=== PATIENT | female | born 1960 | race Caucasian/White ===

== ENCOUNTER 2017-11-19 15:38 | Inpatient (IN) ==
--- NOTE | 2017-11-19 15:44 | Emergency Department Report ---
Neuro HPI - General Stated Complaint: arm & leg heaviness,numbness,throat tight Time Seen by Provider: 11/19/17 15:42 - Related Data Home Medications: Home Medications Medication Instructions Recorded Confirmed Albuterol Sulfate [Ventolin Hfa] 1 puff ORAL INH Q6H PRN #0 12/01/15 Amiodarone HCl 200 mg PO DAILY #0 12/01/15 Insulin Glargine,Hum.rec.anlog 22 unit SQ DAILY #0 12/01/15 [Lantus] Meclizine HCl 25 mg PO TID PRN #0 12/01/15 Metformin HCl 1,000 mg PO BIDWM #0 12/01/15 Metoprolol Succinate 50 mg PO DAILY #0 12/01/15 NIFEdipine [Nifedipine ER] 60 mg PO DAILY #0 12/01/15 Pravastatin Sodium 40 mg PO DAILY #0 12/01/15 Aspirin [Aspirin EC] 81 mg PO DAILY #0 12/04/15 Vitamin B Complex Vit C No.4 1 tab PO DAILY #0 12/04/15 [Super B Complex] Previous Rx's Medication Instructions Recorded Metoprolol Succinate 50 mg PO DAILY #15 tab 07/21/16 NIFEdipine [Nifedipine ER] 1 tab PO DAILY #15 tab 07/21/16 Allergies/Adverse Reactions: Allergies Allergy/AdvReac Type Severity Reaction Status Date / Time No Known Allergies Allergy Unverified 07/20/16 22:04 Disposition Prescriptions: No Action Amiodarone HCl 200 mg PO DAILY #0 NIFEdipine [Nifedipine ER] 60 mg PO DAILY #0 Metformin HCl 1,000 mg PO BIDWM #0 Insulin Glargine,Hum.rec.anlog [Lantus] 22 unit SQ DAILY #0 Albuterol Sulfate [Ventolin Hfa] 1 puff ORAL INH Q6H PRN #0 PRN Reason: SHORTNESS OF AIR Pravastatin Sodium 40 mg PO DAILY #0 Aspirin [Aspirin EC] 81 mg PO DAILY #0 Vitamin B Complex Vit C No.4 [Super B Complex] 1 tab PO DAILY #0 Metoprolol Succinate 50 mg PO DAILY #15 tab Meclizine HCl 25 mg PO TID PRN #0 PRN Reason: DIZZINESS Metoprolol Succinate 50 mg PO DAILY #0 NIFEdipine [Nifedipine ER] 1 tab PO DAILY #15 tab Referrals: Coleman Burk DO [Family Provider] -
[2017-11-19] MEDS: SALINE FLUSH 10ml SYRINGE IVF PRN (15:55)
--- NOTE | 2017-11-19 15:57 | CT Scan Report ---
EXAM: CT head/brain wo con LOCATION OF DICTATION: [place] HISTORY: heaviness and numbness to arms COMPARISON: May 17, 2017 TECHNIQUE: Axial CT images through the head were performed without contrast. Iterative Reconstruction dose reducing technique was utilized. FINDINGS: The ventricles are of normal size, shape, and contour for the patient's age. Moderate deep/subcortical white matter disease unchanged from the previous study. The brainstem, cerebellum, and cerebral hemispheres otherwise have a normal morphology and CT attenuation. There is no evidence of midline displacement. No hemorrhage, signs of acute territorial stroke, mass effect, mass lesions, or edema is evident. The visualized portions of the skull base, midface, and calvarium demonstrate no abnormality. The paranasal sinuses are well aerated and free of significant disease. The tympanic and mastoid cavities appear normal. IMPRESSION: 1. Age-related atrophy and moderate deep/subcortical white matter disease likely secondary to chronic small vessel ischemia and not significantly changed from the previous CT head without evidence for acute intracranial process or hemorrhage. .
[2017-11-19] MEDS ORDERED: INSULIN REGULAR, HUMAN 100 UNIT/ML INJECTION IVP ONE ×2 (16:15→17:04)
[2017-11-19] MEDS ORDERED: NS 1,000 ML IV ONE (16:15)
--- OUTSIDE RECORDS SUMMARY | 2017-11-19 16:44 | External Medical Summary ---
:1960 [facility] Address [address] [place] [address] Care Team Providers Name Role Phone Coleman Burk Unavailable Unavailable PROBLEMS Type Condition ICD9-CM [id number] Onset Condition SNOMED Code Code Code Dates Status Problem Cerebral I63.9 Active 756240721 infarction, unspecified Problem Type 2 diabetes E11.65 Active 566089836114636 mellitus with hyperglycemia Problem Hyperlipidemia, E78.5 Active 59322901 unspecified Problem Hyperlipidemia, E78.5 Active 92808947 unspecified Problem Type 2 diabetes E11.65 Active 224045690208992 mellitus with hyperglycemia Problem Hypothyroidism, E03.9 Active 84263942 unspecified Problem Tension-type G44.209 Active 889303086 headache, unspecified, not intractable Problem Unspecified visual H54.7 Active loss Problem Mixed E78.2 Active 078485218 hyperlipidemia Problem Type 2 diabetes E11.9 Active 698527672 mellitus without complications Problem Coronary 414.00 Active 48402069 atherosclerosis of unspecified type of vessel, 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 coronary artery without angina pectoris Problem Mixed 272.2 Active 506848909 hyperlipidemia Problem Essential (primary) I10 Active 23764016 hypertension Problem Hypertension, 401.1 Active 85162671 benign Problem Low vision, left H54.52 Active 68096210 eye, normal vision right eye ALLERGIES Unknown Allergies SOCIAL HISTORY No smoking Hx information available PLAN OF CARE VITAL SIGNS MEDICATIONS Unknown Medications RESULTS No Results PROCEDURES No Known procedures IMMUNIZATIONS No Known Immunizations
--- OUTSIDE RECORDS SUMMARY | 2017-11-19 16:44 | External Medical Summary ---
:1960 Author Organization [email or web address] Care Team Providers Name Role Phone Coleman Burk Provider Role Unavailable Allergies No Known Allergies Problems Problem Type Condition Code Onset Dates Condition Status Problem Hypertension, benign 401.1 Active Problem Mixed hyperlipidemia 272.2 Active Problem Asthma 493.90 Active Problem Coronary atherosclerosis of 414.00 Active unspecified type of vessel, [place] or graft Problem Type 2 diabetes mellitus without E11.9 Active complications Medications Medication Code Code Instructions Start End Date Status Dosage System Date BD Insulin Syr [facility] 8290-328 31G X 02/13" January 11, as directed Ultrafine II 468 0.5 ML SQ daily 2015 to give DX E11.9 insulin Results No Known Results Summary Purpose [email or web address] Submission
--- OUTSIDE RECORDS SUMMARY | 2017-11-19 16:44 | External Medical Summary ---
:1960 Author Organization [employer] Care Team Providers Name Role Phone Coleman Burk Provider Role Unavailable Allergies No Known Allergies Problems Problem Type Condition Code Onset Dates Condition Status Problem Mixed hyperlipidemia 272.2 Active Problem Asthma 493.90 Active Problem Hypertension, benign 401.1 Active Problem Type 2 diabetes mellitus with E11.65 Active hyperglycemia Problem Hyperlipidemia, unspecified E78.5 Active Problem Tension-type headache, unspecified, G44.209 Active not intractable Problem Essential (primary) hypertension I10 Active Problem 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 [place] coronary artery without angina pectoris Problem Cerebral infarction, unspecified I63.9 Active Problem Low vision, left eye, normal vision H54.52 Active right eye Assessment Low vision, left eye, normal vision H54.52 Active right eye Assessment Type 2 diabetes mellitus with E11.65 Active hyperglycemia Assessment Tension-type headache, unspecified, G44.209 Active not intractable Assessment Cerebral infarction, unspecified I63.9 Active Problem Type 2 diabetes mellitus without E11.9 Active complications Assessment Essential (primary) hypertension I10 Active Problem Coronary atherosclerosis of 414.00 Active unspecified type of vessel, [place] or graft Medications Medication Code Code Instructions Start End Status Dosage System Date Date Lantus [facility] [address]-38 100 UNIT/ML 22 units Subcutaneous Once a day BD Insulin Syr [facility] 8290-813972 31G X 5/16 SQ December as directed Ultrafine II once per day, 2015 to give DX E11.9 insulin Metformin HCl [facility] 13530318088 1000 MG Orally 1 tablet Twice a day with meals Risperidone [facility] [address]-07 0.25 MG Orally 2 tablets Once a day Pravastatin [facility] [address]-15 40 MG Orally 1 tablet Sodium Once a day OneTouch Test [facility] [address]-13 1 In Vitro December as directed Twice every day 2015 to check DX: E11.9 blood sugar Insulin Pen ND 0 32G X 4 MM SQ November as directed Needle once a day, DX 2015 E11.9 NIFEdipine ER [facility] 41689579500 60 MG TAKE 1 CAPSULE BY MOUTH DAILY Meclizine HCl [facility] [address]-35 25 MG Orally 1 tablet as Once a day needed for vertigo Amiodarone HCl [facility] 18721848520 200 MG Orally 1 tablet Once a day Metoprolol [facility] [address]-35 50 MG Orally 1 tablet Succinate ER Once a day Procedures Procedure Coding System Code Date VITAMIN B12 CPT-4 55286 Jul 28, 2016 CREATININE-MICROALB/CREAT RATION URINE CPT-4 37250 Jul 28, 2016 MICROALBUMIN- MICRO ALB/CREAT RATIO CPT-4 55655 Jul 28, 2016 URINALYSIS WITH MICROSCOPIC CPT-4 40525 Jul 28, 2016 COMPLETE CBC W/AUTO DIFF WBC CPT-4 34484 Jul 28, 2016 COMPREHENSIVE METABOLIC PANEL CPT-4 14176 Jul 28, 2016 FOLATE- VIT B12 AND FOLATE CPT-4 52562 Jul 28, 2016 LIPID PANEL CPT-4 33555 Jul 28, 2016 TSH CPT-4 86679 Jul 28, 2016 C-REACTIVE PROTEIN CPT-4 26720 Jul 28, 2016 SED RATE CPT-4 44921 Jul 28, 2016 Results Name Result Date Reference Range Unit Abnormality Flag Comprehensive Metabolic Panel (CMP) ----Alkaline Phosphatase 73 [id number] 40-150 U/L ----Bilirubin Total 0.2 79885443 0.2-1.2 mg/dL ----Creatinine 1.02 20968298 0.57-1.11 mg/dL ----Calcium 9.5 09577473 8.9-10.5 mg/dL ----Sodium 141 25807733 135-144 mEq/L ----Globulin 2.9 58121679 1.8-4.0 g/dL ----Potassium 5.1 11477600 3.5-5.2 mEq/L ----Anion Gap 10 89085004 3-20 ----Chloride 105 26197174 99-111 mEq/L ----AST (SGOT) 25 81984584 5-34 U/L ----CO2 26 45784671 22-31 mEq/L ----Glucose 127 01931353 70-99 mg/dL H ----Albumin 3.5 96820382 3.5-5.0 g/dL ----ALT (SGPT) 16 90751525 0-55 U/L ----BUN 21 44208577 10-20 mg/dL H ----Protein 6.4 58922694 6.1-7.7 g/dL C-Reactive Protein ----C-Reactive Protein <0.5 69171601 <0.5 mg/dL Vitamin B12 and Folate ----Vitamin B12 1261 41313283 213-816 pg/mL H ----Folate 14.0 21144699 7.0-31.4 ng/mL CBC With Platelet and Differential ----MCHC 33.3 34460578 32.0-36.0 g/dL ----MCH 28.7 65864041 27.0-32.0 pg ----MPV 10.4 73164127 8.8-14.8 fL ----RDW 12.8 58324703 11.5-14.5 % ----Eosinophils 6 56002752 0-4 % H ----Basophils 1 66091260 0-2 % ----Immature Granulocytes 0.7 99715243 0.0-1.0 % ----Absolute Neutrophils 4.16 38730888 1.90-7.00 10*3 ----Platelet Count 445 74048634 150-400 K/uL H ----Absolute Eosinophils 0.54 84907859 0.00-0.50 10*3 H ----HCT 37.5 76436629 37.0-47.0 % ----Absolute Basophils 0.07 54002612 0.00-0.20 10*3 ----MCV 86.0 18026334 82.0-99.0 fL ----RBC 4.36 17815253 4.00-5.20 10*6/uL ----Absolute Lymphocytes 3.69 20036035 0.80-3.30 10*3 H ----Absolute Monocytes 1.01 06230822 0.30-1.00 10*3 H ----HGB 12.5 97765465 12.0-16.0 g/dL ----Monocytes 11 27622091 4-11 % ----WBC 9.5 73207039 4.8-10.8 K/uL ----Neutrophils 44 10615240 51-75 % L ----Lymphocytes 39 32064746 20-46 % Urinalysis with Microscopic ----Hyaline Casts 1-3 23473866 0-3 /LPF ----Glucose, Urine Negative 54698152 Negative ----Bacteria Moderate 05455143 * ----Ketones Negative 81239372 Negative ----Epithelial Cells 0-2 73536243 /HPF ----Appearance Clear 07700920 ----WBC, Urine 0-2 01326239 0-4 /HPF ----Color Yellow 16482739 ----Specific [place] 1.007 31793090 1.003-1.030 ----Nitrites Negative 30906546 Negative ----RBC, Urine 0-4 29267049 0-4 /HPF ----Bilirubin Negative 46072449 Negative ----Leukocyte Esterase Negative 98521547 Negative ----Blood Negative 83456809 Negative ----Urobilinogen 0.2 47660270 <1.0 mg/dL ----Protein Pos 2+ 59716857 Negative * ----pH 7.0 97097463 5.0-8.0 TSH ----TSH 6.45 83238768 0.35-4.94 uIU/mL H Micro Albumin/Creatinine Ratio, Urine ----Creatinine mg/dL, 20 57214028 mg/dL Urine ----Albumin mg/dL, Urine 137.5 11247045 0.0-1.7 mg/dL H ----Alb/Creat Ratio, Urine 6875.0 89931787 0.0-29.0 mg/g H Non-HDL Cholesterol ----Non-HDL Cholesterol 185 47097453 0-159 mg/dL H Sedimentation Rate ----Sedimentation Rate 39 44549391 0-23 mm/h H eGFR ----eGFR 56 59683698 >60 mL/min * Lipid Panel ----HDL Cholesterol 71 31187281 40-84 mg/dL ----Triglycerides 165 68951049 0-149 mg/dL H ----VLDL Cholesterol 33 51172256 0-28 mg/dL H ----LDL Cholesterol 152 10415776 0-130 mg/dL H ----Cardiac Risk 3.6 90951076 0.0-5.0 ----Cholesterol 256 31603005 0-199 mg/dL H Summary Purpose [employer] Submission
--- OUTSIDE RECORDS SUMMARY | 2017-11-19 16:45 | External Medical Summary ---
:1960 Author Organization [employer] Care Team Providers Name Role Phone Coleman Burk Provider Role Unavailable Allergies No Known Allergies Problems Problem Type Condition Code Onset Dates Condition Status Problem Diabetes Mellitus Type 2, not stated 250.00 Active as uncontrolled Problem Hypertension, benign 401.1 Active Problem Asthma 493.90 Active Problem Mixed hyperlipidemia 272.2 Active Problem Coronary atherosclerosis of 414.00 Active unspecified type of vessel, [place] or graft Medications No Known Medications Results No Known Results Summary Purpose [employer] Submission
--- OUTSIDE RECORDS SUMMARY | 2017-11-19 16:45 | External Medical Summary ---
:1960 Author Organization [employer] Care Team Providers Name Role Phone Coleman Burk Provider Role Unavailable Allergies No Known Allergies Problems Problem Type Condition Code Onset Dates Condition Status Problem Hypertension, benign 401.1 Active Problem Mixed hyperlipidemia 272.2 Active Problem Asthma 493.90 Active Assessment Dizziness and giddiness R42 Active Problem Coronary atherosclerosis of 414.00 Active unspecified type of vessel, [place] or graft Problem Type 2 diabetes mellitus without E11.9 Active complications Medications Medication Code Code Instructions Start End Date Status D[place] [address]-03 0.25 MG Orally 2 tablets 21-05 [place] [address]-37 25 MG Orally 1 tablet as 43-10 [place] [address]-42 40 MG Orally 1 tablet Sodium 02-10 [place] [address]-31 50 MG Orally 1 tablet Succinate ER 82-01 Once a day Metformin HCl NDC 50605-66 1000 MG Orally 1 tablet 14-01 Twice [place] [address]-75 100 UNIT/ML 22 units 20-33 Subcutaneous Once a day NIFEdipine NDC 01090-29 60 mg Orally 1 capsule 30-10 [place] [address]-43 200 MG Orally 1 tablet 33-06 Once a day Ventolin HFA [facility] 86411-97 108 (90 Base) Sep 02 to 2 82-20 MCG/ACT 2014 puffs as Inhalation every needed for 6 hrs wheezing/[place] [address]-10 81 MG Orally 1 tablet 74-68 Once a day Procedures Procedure Coding System Code Date DUMMY CODE FOR NURSE VISIT CPT-4 DUMMY Sep 03, 2015 Results No Known Results Summary Purpose [employer] Submission
--- OUTSIDE RECORDS SUMMARY | 2017-11-19 16:45 | External Medical Summary ---
:1960 Author Organization [employer] Care Team Providers Name Role Phone Coleman Burk Provider Role Unavailable Allergies, Adverse Reactions, Alerts Substance Reaction Event Type N.K.D.A. Info Not Available Non Drug Allergy Problems Problem Type Condition Code Onset Dates Condition Status Problem Low vision, left eye, normal vision H54.52 Active right eye Problem Hyperlipidemia, unspecified E78.5 Active Problem Cerebral infarction, unspecified I63.9 Active Problem Type 2 diabetes mellitus with E11.65 Active hyperglycemia Assessment Hyperlipidemia, unspecified E78.5 Active Problem Unspecified visual loss H54.7 Active Assessment Type 2 diabetes mellitus with E11.65 Active hyperglycemia Assessment Unspecified visual loss H54.7 Active Problem Hyperlipidemia, unspecified E78.5 Active Problem Tension-type headache, unspecified, G44.209 Active not intractable Problem Type 2 diabetes mellitus with E11.65 Active hyperglycemia Problem Mixed hyperlipidemia E78.2 Active Problem Hypothyroidism, unspecified E03.9 Active Assessment Essential (primary) hypertension I10 Active Problem Type 2 diabetes mellitus without E11.9 Active complications Assessment Other proteinuria R80.8 Active Assessment Raised antibody titer R76.0 Active Problem Hypertension, benign 401.1 Active Problem Asthma 493.90 Active Problem Coronary atherosclerosis of 414.00 Active unspecified type of vessel, [place] or graft Problem 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 [place] coronary artery without angina pectoris Problem Mixed hyperlipidemia 272.2 Active Problem Essential (primary) hypertension I10 Active Medications Medication Code Code Instructions Start End Date Status Dosage System Date Metformin HCl [facility] 81085364385 1000 MG Orally 1 tablet Twice a day with meals Lancets [facility] 8193-499511 1 blood glucose Aug 31, as 3 Times a day 2015 directed Insulin Pen NDC 0 32G X 4 MM SQ November as Needle once a day, DX 2015 directed E11.9 One Touch NDC 0 0 Blood Glucose Aug 31November as Ultra Blue 3 Times a day 2015 directed Test Strips Synthroid [facility] [address]-95 25 MCG Orally Nov 10, 0.5 tablet Once a day 2015 on an empty stomach in the morning Amiodarone HCl [facility] 98212938652 200 MG Orally 1 tablet Once a day NIFEdipine ER [facility] 51151073778 60 MG take 1 capsule by mouth daily Meclizine HCl [facility] [address]-76 25 MG Orally 1 tablet Once a day as needed for vertigo Risperidone [facility] [address]-47 0.25 MG Orally 2 tablets Once a day Lantus [facility] [address]-52 100 UNIT/ML 22 units Subcutaneous Once a day Metoprolol [facility] [address]-35 50 MG Orally 1 tablet Succinate ER Once a day Pravastatin [facility] [address]-65 40 MG Orally 1 tablet Sodium Once a day at bedtime BD Insulin Syr [facility] 8290-513940 31G X 5/16 SQ December as Ultrafine II once per day, 2015 directed DX E11.9 to give insulin OneTouch Test [facility] [address]-67 1 In Vitro 01 January as Times a day 2015 directed to check blood sugar Procedures Procedure Coding System Code Date [facility] visit Established Patient CPT-4 G0467 Aug 31, 2016 OFFICE VISIT, EST-LOW COMPLEXITY (15 MIN.) CPT-4 34425 Aug 31, 2016 HEMOGLOBIN A1C, IN HOUSE CPT-4 60093 Aug 31, 2016 Vital Signs Date/Time: Aug 31, 2016 Temperature 97.8 F Height 61 in Weight 153.8 lbs Blood Pressure Diastolic 90 mm Hg Blood Pressure Systolic 158 mm Hg Cardiac Monitoring Heart Rate 78 /min BMI 29.06 Index Oximetry 97 % Respiratory Rate 16 /min Results Name Result Date Reference Range Unit Abnormality Flag In House HB A1c ----Hemoglobin A1c 7.0 [id number] Summary Purpose [employer] Submission
--- OUTSIDE RECORDS SUMMARY | 2017-11-19 16:45 | External Medical Summary ---
:1960 Author Organization [employer] Care Team Providers Name Role Phone Coleman Burk Provider Role Unavailable Allergies, Adverse Reactions, Alerts Substance Reaction Event Type N.K.D.A. 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 Active right eye Assessment Cardiac arrhythmia, unspecified I49.9 Active Assessment Other asthma J45.998 Active Problem Hypertension, benign 401.1 Active Problem Mixed hyperlipidemia 272.2 Active Problem Asthma 493.90 Active Assessment Other specified diabetes mellitus E13.9 Active without complications Assessment Other abnormalities of gait and R26.89 Active mobility Problem Coronary atherosclerosis of 414.00 Active unspecified type of vessel, [place] or graft Problem Type 2 diabetes mellitus without E11.9 Active complications Medications Medication Code Code Instructions Start End Date Status [place] [address]-78 60 mg Orally 1 capsule 30-10 daily Amiodarone HCl [facility] 42249-61 200 MG Orally 1 tablet 33-06 Once a day Ventolin HFA [facility] 83068-26 108 (90 Base) Sep 02, 1 to 2 82-20 MCG/ACT 2014 puffs as Inhalation every needed for 6 hrs wheezing/[place] [address]-20 40 MG Orally 1 tablet Sodium 02-10 [place] [address]-39 100 UNIT/ML 22 units 20-33 Subcutaneous [place] [address]-17 1000 MG Orally 1 tablet 14-01 Twice [place] [address]-44 25 MG Orally 1 tablet as 43-10 [place] [address]-75 81 MG Orally 1 tablet 74-68 [place] [address]-74 50 MG Orally 1 tablet Succinate ER 82-01 [place] [address]-96 0.25 MG Orally 2 tablets 21-05 Once a day Procedures Procedure Coding System Code Date OFFICE VISIT, EST-MOD. COMPLEXITY (25 MIN) CPT-4 02204 Oct 29, 2015 [facility] visit Established Patient CPT-4 G0467 Oct 29, 2015 Vital Signs Date/Time: Oct 29, 2015 Height 61 in Weight 154.8 lbs Temperature 97.1 F Blood Pressure Diastolic 94 mm Hg Blood Pressure Systolic 134 mm Hg Cardiac Monitoring Heart Rate 69 /min BMI 29.25 Index Oximetry 98 % Respiratory Rate 16 /min Results No Known Results Summary Purpose [employer] Submission
--- OUTSIDE RECORDS SUMMARY | 2017-11-19 16:45 | External Medical Summary ---
:1960 Author Organization [employer] Care Team Providers Name Role Phone Coleman Burk Provider Role Unavailable Allergies No Known Allergies Problems Problem Type Condition Code Onset Dates Condition Status Problem Hypertension, benign 401.1 Active Problem Mixed hyperlipidemia 272.2 Active Problem Diabetes Mellitus Type 2, not stated 250.00 Active as uncontrolled Problem Coronary atherosclerosis of 414.00 Active unspecified type of vessel, [place] or graft Medications Medication Code System Code Instructions Start End Date Status Dosage Date Pravastatin [facility] 450[address]-441 40 MG Orally 1 tablet Sodium 2-10 Once a day Results No Known Results Summary Purpose [employer]Works Submission
--- OUTSIDE RECORDS SUMMARY | 2017-11-19 16:45 | External Medical Summary ---
:1960 Author Organization [employer] Care Team Providers Name Role Phone Coleman Burk Provider Role Unavailable Allergies No Known Allergies Problems Problem Type Condition Code Onset Dates Condition Status Problem Hypertension, benign 401.1 Active Problem Mixed hyperlipidemia 272.2 Active Problem Asthma 493.90 Active Problem Coronary atherosclerosis of 414.00 Active unspecified type of vessel, [place] or graft Problem Type 2 diabetes mellitus without E11.9 Active complications Medications No Known Medications Results No Known Results Summary Purpose [employer] Submission
--- OUTSIDE RECORDS SUMMARY | 2017-11-19 16:45 | External Medical Summary ---
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 [place] coronary artery without angina pectoris Problem Hypothyroidism, unspecified E03.9 Active Problem Tension-type headache, unspecified, G44.209 Active not intractable Problem Mixed hyperlipidemia E78.2 Active Problem Cerebral infarction, unspecified I63.9 Active Problem Low vision, left eye, normal vision H54.52 Active right eye Problem Type 2 diabetes mellitus with E11.65 Active hyperglycemia Problem Hyperlipidemia, unspecified E78.5 Active Assessment Proteinuria, unspecified R80.9 Active Problem Type 2 diabetes mellitus without E11.9 Active complications Problem Coronary atherosclerosis of 414.00 Active unspecified type of vessel, [place] or graft Assessment Hypothyroidism, unspecified E03.9 Active Problem Mixed hyperlipidemia 272.2 Active Assessment Mixed hyperlipidemia E78.2 Active Problem Hypertension, benign 401.1 Active Medications Medication Code Code Instructions Start End Status Dosage System Date Date Metformin HCl [facility] 81510607743 1000 MG Orally 1 tablet Twice a day with meals NIFEdipine ER [facility] 61753905438 60 MG TAKE 1 CAPSULE BY MOUTH DAILY Insulin Pen [facility] 0 32G X 4 MM SQ November as directed Needle once a day, DX 2015 E11.9 Pravastatin [facility] [address]-19 80 MG Orally 1 tablet Sodium Once a day at bedtime Lantus [facility] [address]-65 100 UNIT/ML 22 units Subcutaneous Once a day OneTouch Test [facility] [address]-91 1 In Vitro December as directed Twice every day 2015 to check DX: E11.9 blood sugar Meclizine HCl [facility] [address]-70 25 MG Orally 1 tablet as Once a day needed for vertigo Amiodarone HCl [facility] 76709087204 200 MG Orally 1 tablet Once a day Synthroid [facility] [address]-53 25 MCG Orally Aug 10, 0.5 tablet Once a day 2015 on an empty stomach in the morning Risperidone [facility] [address]-43 0.25 MG Orally 2 tablets Once a day Metoprolol [facility] [address]-89 50 MG Orally 1 tablet Succinate ER Once a day BD Insulin Syr [facility] 8290-824739 31G X 5/16 SQ December as directed Ultrafine II once per day, 2015 to give DX E11.9 insulin Procedures Procedure Coding System Code Date IMMUNOELECTROPHORESIS, URINE CPT-4 03262 Aug 16, 2016 Results No Known Results Summary Purpose eClinicalWorks Submission
--- OUTSIDE RECORDS SUMMARY | 2017-11-19 16:45 | External Medical Summary ---
:1960 Author Organization eClinicalWorks Care Team Providers Name Role Phone Coleman Burk Provider Role Unavailable Allergies, Adverse Reactions, Alerts Substance Reaction Event Type N.K.D.A. Info Not Available Non Drug Allergy Problems Problem Type Condition Code Onset Dates Condition Status Assessment Hyperlipidemia, unspecified E78.5 Active Assessment Benign paroxysmal vertigo, H81.10 Active unspecified ear Assessment Essential (primary) hypertension I10 Active Assessment 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 [place] coronary artery without angina pectoris Problem 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 [place] coronary artery without angina pectoris Problem Asthma 493.90 Active Problem Essential (primary) hypertension I10 Active Problem Coronary atherosclerosis of 414.00 Active unspecified type of vessel, [place] or graft Problem Type 2 diabetes mellitus without E11.9 Active complications Problem Hypertension, benign 401.1 Active Problem Mixed hyperlipidemia 272.2 Active Medications Medication Code Code Instructions Start End Date Status Dosage System Date Amiodarone HCl NDC 26585-55 200 MG Orally 1 tablet 33-06 [place] [address]-44 100 UNIT/ML 22 units 20-33 Subcutaneous Once a day Pravastatin NDC 35567-50 40 MG Orally 1 tablet Sodium 02-10 Once a day BD Insulin Syr ND 8290-328 31G X 5/16 SQ January 11, as directed Ultrafine II 468 once per day, 2016 to give DX E11.9 insulin Metformin HCl NDC 45920-96 1000 MG Orally 1 tablet 14- Twice [place] [address]-27 1 In Vitro Twice January 10, as directed every day DX: 2015 to check E11.9 blood sugar Flonase NDC 93216-11 50 MCG/ACT Nov, 1 spray in 53- Nasally Once a 2015 [place] [address]-40 108 (90 Base) Sep 02, 1 to 2 puffs 82-20 MCG/ACT 2014 as needed Inhalation every for 6 hrs wheezing/[place] [address]-30 50 MG Orally 1 tablet Succinate ER 82-01 Once a day NIFEdipine ER NDC 61298-46 60 MG Orally Oct 29, 1 tablet 58-01 Once a day 2016 Insulin Pen NDC 0 32G X 4 MM SQ December 06, as directed Needle once a day, DX 2016 E11.9 [place] [address]-78 0.25 MG Orally 2 tablets 21-05 [place] [address]-20 25 MG Orally 1 tablet as 43-10 Once a day needed for vertigo Procedures Procedure Coding System Code Date OFFICE VISIT, EST-LOW COMPLEXITY (15 MIN.) CPT-4 60332 Jun 22, 2016 [facility] visit Established Patient CPT-4 G0467 Jun 22, 2016 Vital Signs Date/Time: Jun 22, 2016 Temperature 98.3 F Height 61 in Weight 149 lbs Blood Pressure Diastolic 92 mm Hg Blood Pressure Systolic 160 mm Hg Cardiac Monitoring Heart Rate 73 /min BMI 28.15 Index Oximetry 98 % Results No Known Results Summary Purpose eClinicalWorks Submission
--- OUTSIDE RECORDS SUMMARY | 2017-11-19 16:45 | External Medical Summary ---
:1960 Author Organization eClinicalWorks Care Team Providers Name Role Phone Coleman Burk Provider Role Unavailable Allergies No Known Allergies Problems Problem Type Condition Code Onset Dates Condition Status Problem Mixed hyperlipidemia 272.2 Active Problem Asthma 493.90 Active Problem Hypertension, benign 401.1 Active Problem Type 2 diabetes mellitus without E11.9 Active complications Problem Coronary atherosclerosis of 414.00 Active unspecified type of vessel, [place] or graft Problem Type 2 diabetes mellitus with E11.65 Active hyperglycemia Problem Hyperlipidemia, unspecified E78.5 Active Problem Tension-type headache, unspecified, G44.209 Active not intractable Problem Essential (primary) hypertension I10 Active Problem 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 [place] coronary artery without angina pectoris Problem Cerebral infarction, unspecified I63.9 Active Problem Low vision, left eye, normal vision H54.52 Active right eye Medications No Known Medications Results No Known Results Summary Purpose PaeD[facility]Andela Submission
--- OUTSIDE RECORDS SUMMARY | 2017-11-19 16:45 | External Medical Summary ---
:1960 Author Organization eClinicalWorks Care Team Providers Name Role Phone Coleman Burk Provider Role Unavailable Allergies No Known Allergies Problems Problem Type Condition ICD-9 Code Onset Dates Condition Status Problem Hypertension, benign 401.1 Active Problem Mixed hyperlipidemia 272.2 Active Problem Diabetes Mellitus Type 2, not 250.00 Active stated as uncontrolled Problem Coronary atherosclerosis of 414.00 Active unspecified type of vessel, [place] or graft Medications No Known Medications Results No Known Results Summary Purpose [employer] Submission
[2017-11-19 18:22] VITALS: BMI 30.3
[2017-11-19] MEDS ORDERED: ONDANSETRON 4 MG/2 ML INJECTION IVP PRN (20:20)
--- NOTE | 2017-11-19 20:32 | History & Physical Report ---
History of Present Illness Date: 11/19/17 Chief complaint: arm and leg feel heavy HPI: Clarisa Shaikh is a 57 year old woman who was admitted to [facility] for stroke-like symptoms. Her symptoms started around noon while eating, she began to feel a funny sensation in her left leg then her left arm. They felt heavy and difficulty to move. She couldn't feel her left leg. She felt dizzy and lightheaded but denies vertigo. She denies syncope or mental status changes. She did not fall. She denies headache, vision changes. She has had chronic problems swallowing ever since stroke in 2016. She denies fevers but has had a recent cough and sinus drainage which sometimes provokes a migraine, but she did not have a migraine today. No chest pain, dyspnea, palpitations, leg swelling, abdominal pain, n/v/d/c, dysuria. She has chronic nocturia. She's been sleeping a lot, more than usual. She can't fall asleep until 0300 then she sleeps in till 11 or 1200. She's gained 4 lbs in a month. Her blood sugars are variable at home. On arrival to the ED, her VS were stable. She was reportedly dragging her left leg. A CT scan was negative for acute infarct but did show moderate white matter disease. Labs showed mild leukocytosis and thrombocytosis , and also TRIPP with creatinine of 2.3. Glucose was also elevated at 454, and after insulin x2 it decreased to 393. Upon arrival in the room, nursing staff report that she was extremely unsteady with left leg weakness. Review of Systems All systems PM: 10-point ROS was reviewed, no additional remarkable complaints except - Constitutional Constitutional: Present: as per HPI - EENMT Eyes: Present: as per HPI Balance: Absent: vertigo Nose: Present: as per HPI Mouth/Throat: Present: as per HPI - Cardiovascular Cardiovascular: Present: as per HPI Vascular: Present: see HPI - Respiratory Respiratory: Present: as per HPI - Gastrointestinal Gastrointestinal: Present: as per HPI - Genitourinary Genitourinary: Present: as per HPI - Musculoskeletal Musculoskeletal: Present: abnormal gait, muscle weakness - Integumentary/Breasts Integumentary: Present: as per HPI. Absent: rash - Neurological Neurological: Present: as per HPI - Psychiatric Psychiatric: Present: anxiety. Absent: depression - Endocrine Endocrine: Present: as per HPI - Hematologic/Lymphatic Hematologic/Lymphatic: Absent: easy bleeding, easy bruising Past Medical History Atrial fibrillation Stroke/TIA HTN Hyperlipidemia DM type 2 CKD stage 2 Asthma Hypothyroidism Migraines Obesity, BMI>30 Surgical History: Tonsillectomy Family History Updates: Mother at age 75 and father at age 80 - both had diabetes and CAD. 3 sisters - 1 sister with diabetes, tremors; another sister with diabetes. 1 brother - of complications of diabetes. 2 grown children are healthy. - Social History Smoking status: Never smoker Substance use type: does not use Alcohol intake frequency: does not drink Current occupational status: retired Previous occupational history: Housekeeping Social history: PCP: Dr. Burk Medications Home Medications Medication Instructions Recorded Confirmed Type Insulin Glargine,Hum.rec.anlog 22 unit SQ DAILY #0 12/01/15 11/19/17 History [Lantus] Vitamin B Complex Vit C No.4 1 tab PO DAILY #0 12/04/15 11/19/17 History [Super B Complex] Amiodarone [Pacerone] 200 mg PO DAILY 11/19/17 11/19/17 History Aspirin Chewable [ASA] 81 mg PO DAILY 11/19/17 11/19/17 History Levothyroxine Sodium 50 mcg PO DAILY 11/19/17 11/19/17 History Linagliptin [Tradjenta] 5 mg PO DAILY 11/19/17 11/19/17 History Meclizine [Antivert] 25 mg PO BID 11/19/17 11/19/17 History Metoprolol Succinate 50 mg PO DAILY 11/19/17 11/19/17 History NIFEdipine [Nifedipine ER] 60 mg PO DAILY 11/19/17 11/19/17 History Pravastatin Sodium 80 mg PO HS 11/19/17 11/19/17 History Allergies Allergy/AdvReac Type Severity Reaction Status Date / Time No Known Allergies Allergy Unverified 07/20/16 22:04 Exam Vital Signs: Temperature 98.4 F 11/19/17 15:40 Pulse Rate 80 11/19/17 18:10 Respiratory Rate 20 11/19/17 18:10 Blood Pressure 135/64 11/19/17 18:10 Pulse Oximetry 95 11/19/17 18:10 Height/Weight/BMI: Height 1.57 m Weight 75.3 kg Body Mass Index 30.3 - Constitutional Present: no acute distress, well nourished, well developed - Routine HEENT Exam Head: Present: normocephalic Eye: Present: PERRL. Absent: conjunctival icterus, scleral injection ENT: Present: mucous membranes moist, oropharynx clear. Absent: dentition normal (dentures in place) - Routine Neck Exam Present: supple, lymphadenopathy (mild anterior lymphadenopathy) - Routine Respiratory Exam Present: CTA bilaterally - Routine Cardiovascular Exam Present: RRR, S1, S2 - Routine Abdominal Exam Present: soft, normoactive bowel sounds, non distended, non tender - Routine Extremities Exam Present: no edema, pulses intact, normal capillary refill - Routine Skin Exam Present: intact, dry, warm, scars (b/l legs) - Routine Neurological Exam Present: alert, oriented X3, CN II-XII intact, motor deficit, moving all extremities, vision grossly intact, hearing grossly intact, normal speech. Absent: sensory deficit (sensation intact to light touch to all extremities), altered mental status, facial asymmetry Booky 5/5, equal Biceps 5/5, equal Triceps 5/5, equal Deltoid 5/5, equal Hip flexion 5/5 right, 3+/5 left Knee ext 5/5 right, 4-/5 left foot dorsiflexion 5/5 right, 4-/5 left foot plantarflexion 5/5 right, 4-/5 left finger to nose intact on right but slow and inaccurate on left - Routine Psychiatric Exam Present: normal affect, normal thought process, cooperative Results - Labs CBC & Chem 7: 11/19/17 15:58 11/19/17 15:58 Assessment and Plan (1) Left leg weakness Current visit: Yes Status: Acute Assessment and Plan: IMPRESSION Left leg weakness with gait instability TRIPP, CKD stage 2 Hyperglycemia, hx of DM type 2 Leukocytosis and thrombocytosis, POA Atrial fibrillation, not on anticoagulation Stroke/TIA HTN Hyperlipidemia Asthma Hypothyroidism Migraines PLAN Admit, observation status, under the hospitalist service. Left leg weakness, left arm coordination deficit, and ataxia/gait instability -stroke w/u with MRI, echo, carotid doppler, lipid panel -cont statin and ASA but consider plavix or anticoag with hx of a-fib -check ekg and monitor tele -PT/OT/ST consult -check B12 d/t paresthesias -check TSH TRIPP -last creatinine on file was 1.3 in 2016 -bladder scan, check UA -IVF: NS @ 125 mL/hr -renal sono ordered -meds reviewed: no nephrotoxic agents identified Hyperglycemia, DM2 -check A1c -cont home insulin and add medium-dose SSI -CC diet; may need diabetic education PCP: Dr. Burk Discussed with Dr. Boo. DVT Prophylaxis: Lovenox Resuscitation Status: Full Code - Physician Narrative Physician: Rasheeda Boo MD Narrative: Date: 11/19/17 Time: 10 PM-Dr. Boo I reviewed this chart, the patient history, and the CABLE WAY OPERATOR's/PA's documented findings as above. We discussed and formulated the assessment and plan as above with the additions below. Chief complaint is left arm and left leg heaviness History of present illness: The patient is a pleasant 57-year-old female who stated that this afternoon she began having heaviness in her left arm and left leg and they felt weak. She presented to the emergency room and had a CT head which showed no acute findings. She denies any difficulties with speech. She states she is eating and drinking well without any swallowing difficulties. She denies any vision changes. She denies any headache or pain elsewhere. She states she has been urinating a lot and is more thirsty. She states she has been checking her blood sugars but does not remember what her blood sugars have been recently. Past medical history is significant for atrial fibrillation, history of stroke in 2016, hypertension, diabetes, hyperlipidemia and chronic kidney disease. Medications include an aspirin a day and pravastatin. She is on amiodarone but is not on anticoagulation. On exam the patient is alert and oriented 3 and in no acute distress. HEENT reveals sclerae to be anicteric and oropharynx is moist. Neck is supple. Chest is clear to auscultation. Cardio vascular reveals a regular rate and rhythm. Telemetry shows sinus rhythm. Abdomen is soft and nontender. Extremities are free of edema. Skin is warm and dry and without rashes. On neurologic exam cranial nerves II through XII are grossly intact. Motor strength is equal in the right and left upper extremity. Finger to nose testing appears more difficult for the patient on the left than on the right. Motor strength is 3-4 on the left leg compared to the right leg. Ihyo-jo-dksh testing appears to be equal in the bilateral legs. Pertinent lab reveals creatinine of 2.3. Last creatinine here was in July 2016 and was 1.3 Blood glucose was 494 now down to 294 Globulin was mildly elevated at 3.7 with normal total protein EKG reveals sinus rhythm. CT head was reviewed. Impression Left upper and lower extremity weakness, improving in the left arm. Concerning for possible acute stroke, symptoms have not resolved. We'll change to full inpatient History of A. fib-early in sinus rhythm Poorly controlled diabetes Hypertension Hyperlipidemia Chronic kidney disease versus acute kidney injury Plan Agree with stroke workup that has been initiated with MRI brain, carotid Dopplers, echocardiogram, lipid panel, PT eval, OT eval, speech therapy eval. We 'll check neuro checks every 6 hours. Continue on telemetry. We'll hold antihypertensives for now and reevaluate tomorrow. Decrease IV fluid rate 75 ML's per hour Call PCP tomorrow to find out baseline creatinine Hospital Course Summary Disclaimer: The visit summary below is not to be considered part of the above Progress Note. Hospital Course: 11/19 Admit, observation status, under the hospitalist service. Left leg weakness, left arm coordination deficit, and ataxia/gait instability -stroke w/u with MRI, echo, carotid doppler, lipid panel -cont statin and ASA but consider plavix or anticoag with hx of a-fib -check ekg and monitor tele -PT/OT/ST consult -check B12 d/t paresthesias -check TSH RTIPP -last creatinine on file was 1.3 in 2016 -bladder scan, check UA -IVF: NS @ 125 mL/hr -renal sono ordered -meds reviewed: no nephrotoxic agents identified Hyperglycemia, DM2 -check A1c -cont home insulin and add medium-dose SSI -CC diet; may need diabetic education
[2017-11-19] MEDS: NS 1,000 ML IV SCH (20:58)
[2017-11-19] MEDS ORDERED: PRAVASTATIN 40 MG TABLET PO SCH (21:00)
[2017-11-19] MEDS: MECLIZINE 25 MG TABLET PO SCH (21:11)
[2017-11-19] MEDS: INSULIN REGULAR, HUMAN 100 UNIT/ML INJECTION SQ PRN (22:38)
[2017-11-20] MEDS: LEVOTHYROXINE 50 MCG TABLET PO SCH (06:38)
[2017-11-20] MEDS: AMIODARONE 200 MG TABLET PO SCH (08:16)
[2017-11-20] MEDS: MECLIZINE 25 MG TABLET PO SCH ×2 (08:16→20:36)
[2017-11-20] MEDS: INSULIN GLARGINE 100unit/ml INJECTION SQ SCH (08:16)
[2017-11-20] MEDS: ENOXAPARIN 30 MG/0.3 ML INJECTION SQ SCH (08:17)
[2017-11-20] MEDS ORDERED: NIFEDIPINE 60 MG PO SCH (09:00)
[2017-11-20] MEDS ORDERED: ASPIRIN 81 MG CHEWABLE TABLET PO SCH (09:00)
--- NOTE | 2017-11-20 09:56 | Ultrasound Report ---
Indication: poss stroke PROCEDURE: US carotid doppler BI: TECHNIQUE: Grayscale, color and duplex Doppler imaging was performed of the carotid systems bilaterally. Comparison: December 01, 2015 Velocities in cm/sec - validated velocity measurements with angiographic measurements, velocity criteria are extrapolated from diameter data as defined by the Society of Radiologists in Ultrasound Consensus Conference Radiology 2003; 229;340-346. RIGHT: PSV ICA 119 EDV ICA 33 PSV CCA 85.9 EDV CCA 14.1 PSV ECA 59.5 ICA Diameter reduction <20% (0.8-1.0)% LEFT: PSV ICA 140 EDV ICA 29.4 PSV CCA 77.6 EDV CCA 21.2 PSV ECA 68 ICA Diameter reduction <20% (0.8-1.0)% The right vertebral artery is patent with cephalic flow. The left vertebral artery is patent with cephalic flow. Common carotid intimal thickening bilaterally. Scattered plaque in the carotid bulbs. Mild velocity elevation in the distal ICAs is felt to be due to tortuosity rather than a true stenosis. IMPRESSION: No hemodynamically significant carotid stenosis. .
--- NOTE | 2017-11-20 09:58 | Ultrasound Report ---
Indication: jessi PROCEDURE: US renal BI: Encounter: Initial Comparison: None Technique: Grayscale and color Doppler sonographic imaging of both kidneys and bladder was performed. FINDINGS: Both kidneys are present with normal cortical thickness and echogenicity. No hydronephrosis. Large echogenic lesion arising from the lateral aspect of the right kidney lower pole measuring 3.6 x 3.5 x 4.3 cm in size. No left-sided renal mass. The right kidney measures 10.4 cm in length, and the left kidney measures 10.2 cm in length. Bladder appears sonographically normal without debris or mass. Bilateral ureteral jets noted. IMPRESSION: 1. No hydronephrosis. 2. Large echogenic 4.3 cm right renal mass could represent an angiomyolipoma. Noncontrast abdominal CT could be performed for initial further evaluation to evaluate for a fat-containing mass. .
[2017-11-20] MEDS: NS 1,000 ML IV SCH (10:30)
--- NOTE | 2017-11-20 10:38 | Magnetic Resonance Report ---
Indication: left leg/arm weakness PROCEDURE: MR head/brain wo con: Encounter: Initial Comparisons: Head CT dated November 19, 2017] MRI dated September 28, 2016 Technique: Multiplanar, multisequence, MR imaging of the head without contrast was acquired. FINDINGS: Two small areas of acute diffusion restriction are seen, one is in the posterior limb of the right internal capsule while the other is in the periventricular right posterior frontal white matter. These areas have T2/FLAIR hyperintensity as expected. The ventricles are of normal size, shape, and contour for the patient's age. There are extensive additional areas of T2-weighted and T2 FLAIR weighted signal abnormality in the deep frontoparietal white matter that most likely represent small vessel ischemic disease. This is greatly advanced for the patient's age, but similar to the comparison studies. The brain stem, cerebellum, and cerebral hemispheres otherwise have a normal morphologic appearance as well as MR signal intensity on all pulse sequences. There is no evidence of an intracranial mass lesion, intracranial hemorrhage, or hydrocephalus. The visualized portions of the orbits, calvarium, paranasal sinuses, and skull base demonstrate no significant abnormality. IMPRESSION: 1. Two small areas of acute right MCA territory infarct. 2. Greatly advanced small vessel ischemic white matter disease for age. .
--- NOTE | 2017-11-20 14:24 | Progress Note ---
- Date 11/20/17 Subjective: The patient was seen in her room accompanied by her son and sister. She states that she feels better but she still has a little bit of weakness in the left leg and left arm still feels a little heavy. She denies any shortness of breath or chest pain. She denies any palpitations. She states she has been taking her aspirin daily and all of her other medications as prescribed. She also reports that she drinks a lot of pop and juice. She complains of some chronic vision changes and does see an eye doctor. She was told she had a "stroke" in the back of her eye in the past. Objective Vital signs: Temperature 96.7 F L 11/20/17 07:28 Pulse Rate 66 11/20/17 07:28 Respiratory Rate 16 11/20/17 07:28 Blood Pressure 160/81 H 11/20/17 07:28 Pulse Oximetry 98 11/20/17 07:28 Height/Weight/BMI: Weight 74.5 kg Comments: Afebrile, pulse 66, respirations 16, blood pressure 160/81, O2 sat 98% on room air Telemetry shows sinus rhythm Blood sugars 199, and 146 today, 294 last night GEN-alert, oriented, no acute distress HEENT-sclera anicteric, pupils equal, oropharynx is moist NECK-supple CV-regular rate and rhythm CHEST-clear to auscultation bilaterally ABD-soft, nontender with positive bowel sounds -no Harris EXT-no edema NEURO-no focal deficits SKIN-warm and dry and without rashes Results - Labs CBC & Chem 7: 11/20/17 04:05 11/20/17 04:05 Labs: TSH 2.15 Cholesterol 271, triglycerides 161, LDL 180, HDL 58 Hemoglobin A1c 11.6 Urinalysis shows 2+ protein and 3+ glucose - Impressions Comparisons: Head CT dated November 19, 2017] MRI dated September 28, 2016 Technique: Multiplanar, multisequence, MR imaging of the head without contrast was acquired. FINDINGS: Two small areas of acute diffusion restriction are seen, one is in the posterior limb of the right internal capsule while the other is in the periventricular right posterior frontal white matter. These areas have T2/FLAIR hyperintensity as expected. The ventricles are of normal size, shape, and contour for the patient's age. There are extensive additional areas of T2-weighted and T2 FLAIR weighted signal abnormality in the deep frontoparietal white matter that most likely represent small vessel ischemic disease. This is greatly advanced for the patient's age, but similar to the comparison studies. The brain stem, cerebellum, and cerebral hemispheres otherwise have a normal morphologic appearance as well as MR signal intensity on all pulse sequences. There is no evidence of an intracranial mass lesion, intracranial hemorrhage, or hydrocephalus. The visualized portions of the orbits, calvarium, paranasal sinuses, and skull base demonstrate no significant abnormality. IMPRESSION: 1. Two small areas of acute right MCA territory infarct. 2. Greatly advanced small vessel ischemic white matter disease for age. . PROCEDURE: US renal BI: Encounter: Initial Comparison: None Technique: Grayscale and color Doppler sonographic imaging of both kidneys and bladder was performed. FINDINGS: Both kidneys are present with normal cortical thickness and echogenicity. No hydronephrosis. Large echogenic lesion arising from the lateral aspect of the right kidney lower pole measuring 3.6 x 3.5 x 4.3 cm in size. No left-sided renal mass. The right kidney measures 10.4 cm in length, and the left kidney measures 10.2 cm in length. Bladder appears sonographically normal without debris or mass. Bilateral ureteral jets noted. IMPRESSION: 1. No hydronephrosis. 2. Large echogenic 4.3 cm right renal mass could represent an angiomyolipoma. Noncontrast abdominal CT could be performed for initial further evaluation to evaluate for a fat-containing mass. Carotid Doppler showed no hemodynamically significant carotid stenosis Echocardiogram verbal report is normal ejection fraction of 61%, LVH, mild tricuspid regurg, mild pulmonary hypertension, trace mitral regurg, no effusion , no clot Assessment and Plan (1) Left leg weakness Current visit: Yes Status: Acute Assessment and Plan: IMPRESSION 2 Acute small right MCA territory ischemic strokes TRIPP-resolved CKD stage 2-baseline creatinine 1.7 Right renal mass 4.3 cm Hyperglycemia, hx of DM type 2-A1c 11.6-poorly controlled Leukocytosis and thrombocytosis, POA History of Atrial fibrillation, not on anticoagulation History of TIA HTN Hyperlipidemia-poorly controlled despite use of pravastatin Asthma Hypothyroidism Migraines Positive [place] Noncompliant as an outpatient with referrals to nephrology and cardiology Hypokalemia-mild PLAN Start Plavix regarding acute ischemic strokes. With history of A. fib, would need to consider switching to anticoagulation in 1-2 weeks. The patient may benefit from outpatient cardiac monitoring. Regarding right renal mass-we'll obtain CT abdomen Discontinue IV fluids Give oral potassium for mild hypokalemia Consult diabetes education nurse regarding poorly controlled diabetes Consult dietitian regarding education on diet with diabetes and hyperlipidemia The patient will need a walker at discharge Metoprolol and nifedipine are currently on hold for acute stroke-recheck vitals now and consider restarting metoprolol Start atorvastatin and discontinue pravastatin Discussed with Dr. Bourgeois, patient's PCP DVT Prophylaxis: Lovenox - Time spent with patient Time with patient PN: 50 minutes - Physician Narrative Narrative: Date: 11/20/17 Time: 1416 Hospital Course Summary Disclaimer: The visit summary below is not to be considered part of the above Progress Note. Hospital Course: 11/19 Admit, observation status, under the hospitalist service. Left leg weakness, left arm coordination deficit, and ataxia/gait instability -stroke w/u with MRI, echo, carotid doppler, lipid panel -cont statin and ASA but consider plavix or anticoag with hx of a-fib -check ekg and monitor tele -PT/OT/ST consult -check B12 d/t paresthesias -check TSH TRIPP -last creatinine on file was 1.3 in 2016 -bladder scan, check UA -IVF: NS @ 125 mL/hr -renal sono ordered -meds reviewed: no nephrotoxic agents identified Hyperglycemia, DM2 -check A1c -cont home insulin and add medium-dose SSI -CC diet; may need diabetic education
--- NOTE | 2017-11-20 15:50 | CT Scan Report ---
Indication: mass right kidney seen on sono PROCEDURE: CT abdomen wo con: Encounter: Initial Comparison: Renal ultrasound from today Technique: Axial CT images were performed through the abdomen without intravenous contrast. Coronal and sagittal two-dimensional reformats. Automated Exposure Control and Iterative Reconstruction dose reducing techniques were utilized. Findings: The lung bases are clear. The unenhanced contours of the liver are unremarkable. The gallbladder appears normal. The spleen, pancreas and adrenal glands are within normal limits left kidney appears normal. In the area of sonographic abnormality in the lateral aspect of the right kidney there is a fat containing mass measuring 3.3 x 2.9 x 3.1 cm in size. There is no renal stone disease or hydronephrosis. The visualized loops of small and large bowel are unremarkable. Bone windows show degenerative change in the spine with no focal lytic or blastic lesions. 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 Current consensus recommendations are that this does not require further workup given the size less than 4 cm. .
--- NOTE | 2017-11-20 16:07 | Echocardiogram ---
DATE OF PROCEDURE November 20, 2017 REFERRING PHYSICIAN Rasheeda Boo MD This is a two-dimensional echo with spectral Doppler, color-flow and M-mode. It was obtained in a patient with possible CVA. Left atrial dimension is normal. Left ventricular end-diastolic dimension is normal. Left ventricle wall thickness is increased. LV systolic function is normal with ejection fraction of 61%. Right atrium is normal. Right ventricle is normal. Aortic root dimension is normal. Mitral valve is morphologically normal with trace of mitral regurgitation. Aortic valve is normal. Tricuspid valve shows mild tricuspid regurgitation with mild pulmonary hypertension with estimated pulmonary artery systolic pressure of 37. Pulmonary valve shows no pulmonary insufficiency. There is no pericardial effusion. IMPRESSION 1. Normal LV systolic function with ejection fraction of about 61%. 2. Concentric left ventricular hypertrophy. 3. Mild tricuspid regurgitation with mild pulmonary hypertension with estimated pulmonary artery systolic pressure of 37. 4. Trace of mitral regurgitation. MTDD
[2017-11-20] MEDS: CLOPIDOGREL 75 MG TABLET PO SCH (17:48)
[2017-11-20] MEDS: INSULIN REGULAR, HUMAN 100 UNIT/ML INJECTION SQ PRN ×2 (17:49→20:36)
[2017-11-20] MEDS: ATORVASTATIN 40 MG TABLET PO SCH (20:37)
[2017-11-20] MEDS ORDERED: PRAVASTATIN 40 MG TABLET PO SCH (21:00)
[2017-11-21] MEDS: LEVOTHYROXINE 50 MCG TABLET PO SCH (06:22)
[2017-11-21] MEDS: ENOXAPARIN 30 MG/0.3 ML INJECTION SQ SCH (08:45)
[2017-11-21] MEDS: MECLIZINE 25 MG TABLET PO SCH ×2 (08:45→21:00)
[2017-11-21] MEDS: INSULIN GLARGINE 100unit/ml INJECTION SQ SCH (08:45)
[2017-11-21] MEDS: CLOPIDOGREL 75 MG TABLET PO SCH (08:45)
[2017-11-21] MEDS: AMIODARONE 200 MG TABLET PO SCH (08:45)
[2017-11-21] MEDS: INSULIN REGULAR, HUMAN 100 UNIT/ML INJECTION SQ PRN ×2 (12:45→16:35)
--- NOTE | 2017-11-21 14:10 | Progress Note ---
- Date 11/21/17 Subjective: Clarisa is seen today in follow up. She reports that she is feeling better. However, continues to have some heaviness in the left arm and left leg. Denies feeling short of breath or having chest pain. Verbalizes concern about having home health covered by her insurance. Objective Vital signs: Temperature 96.3 F L 11/21/17 07:46 Pulse Rate 65 11/21/17 07:46 Respiratory Rate 16 11/21/17 07:46 Blood Pressure 156/96 H 11/21/17 07:46 Pulse Oximetry 97 11/21/17 07:46 Height/Weight/BMI: Weight 72.9 kg - Constitutional Present: no acute distress, well nourished, well developed - Routine HEENT Exam Eye: Present: EOMI ENT: Present: mucous membranes moist, dentition normal - Routine Respiratory Exam Present: CTA bilaterally. Absent: wheezes - Routine Cardiovascular Exam Present: RRR, S1, S2. Absent: murmur - Routine Abdominal Exam Present: soft, normoactive bowel sounds, non distended. Absent: tenderness - Routine Extremities Exam Present: pulses intact Comments: LLE weakness - Routine Skin Exam Present: dry, warm - Routine Neurological Exam Present: alert, oriented X3, CN II-XII intact - Routine Lymphatic Exam Lymphatic: Absent: adenopathy - Routine Psychiatric Exam Present: normal affect Results - Labs CBC & Chem 7: 11/20/17 04:05 11/21/17 05:13 Assessment and Plan (1) Left leg weakness Current visit: Yes Status: Acute Assessment and Plan: IMPRESSION 2 Acute small right MCA territory ischemic strokes TRIPP-resolved CKD stage 2-baseline creatinine 1.7 Right renal mass 4.3 cm Hyperglycemia, hx of DM type 2-A1c 11.6-poorly controlled Leukocytosis and thrombocytosis, POA History of Atrial fibrillation, not on anticoagulation History of TIA HTN Hyperlipidemia-poorly controlled despite use of pravastatin Asthma Hypothyroidism Migraines Positive [place] Noncompliant as an outpatient with referrals to nephrology and cardiology Hypokalemia-mild PLAN Continue with Plavix given CVA. May consider full anticoagulation in 1-2 weeks. Statin added at admission Resume home Betablocker for better BP control. Home Nifedipine remains on hold for now. Working with PT/OT who recommend home health Case discussed with attending and CM. 11/21/2017-7:20 PM-I reviewed this chart, the patient history, and the AUDIT CONTROL CLERK's/PA 's documented findings as above. We discussed and formulated the assessment and plan as above with the additions below.-Dr. Boo The Patient is seen this evening in her room. She states her left leg still feels heavy but she is able to walk with a walker. She think she might be ready to go home tomorrow. She did see the diabetes education nurse today and stated it was very helpful. She will be giving her insulin in her abdomen now instead of in her thigh. She will also cut out drinking soda pop and juice. On exam she is alert and in no acute distress. HEENT reveals oropharynx to be moist. Chest is clear to auscultation. Cardiovascular reveals a regular rate and rhythm. Abdomen is soft and nontender. Extremities are free of edema. Neurologic reveals continued weakness in the left lower leg. She is able to walk with a walker. Impression and plan Two acute small right MCA territory ischemic strokes. Plavix started this hospital course. She does have history of A. fib and might benefit from anticoagulation in 1-2 weeks. Start beta deena today. Consider restarting nifedipine tomorrow. Probable discharge tomorrow with home health. Discussed with case management - Physician Narrative Narrative: Date: 11/21/17 Time: 1407 Hospital Course Summary Disclaimer: The visit summary below is not to be considered part of the above Progress Note. Hospital Course: 11/19 Admit, observation status, under the hospitalist service. Left leg weakness, left arm coordination deficit, and ataxia/gait instability -stroke w/u with MRI, echo, carotid doppler, lipid panel -cont statin and ASA but consider plavix or anticoag with hx of a-fib -check ekg and monitor tele -PT/OT/ST consult -check B12 d/t paresthesias -check TSH TRIPP -last creatinine on file was 1.3 in 2016 -bladder scan, check UA -IVF: NS @ 125 mL/hr -renal sono ordered -meds reviewed: no nephrotoxic agents identified Hyperglycemia, DM2 -check A1c -cont home insulin and add medium-dose SSI -CC diet; may need diabetic education 11/21 Continue with Plavix given CVA. May consider full anticoagulation in 1-2 weeks. Statin added at admission Resume home Betablocker for better BP control. Home Nifedipine remains on hold for now. Working with PT/OT who recommend home health Case discussed with attending and CM.
[2017-11-21] MEDS: ATORVASTATIN 40 MG TABLET PO SCH (20:59)
[2017-11-22] MEDS: LEVOTHYROXINE 50 MCG TABLET PO SCH (06:44)
[2017-11-22] MEDS: MECLIZINE 25 MG TABLET PO SCH ×2 (09:15→20:27)
[2017-11-22] MEDS: CLOPIDOGREL 75 MG TABLET PO SCH (09:15)
[2017-11-22] MEDS: ENOXAPARIN 30 MG/0.3 ML INJECTION SQ SCH (09:15)
[2017-11-22] MEDS: AMIODARONE 200 MG TABLET PO SCH (09:15)
--- NOTE | 2017-11-22 09:15 | Progress Note ---
- Date 11/22/17 Subjective: Clarisa reports that her left leg won't move this morning and her left arm is weaker. Compared to the last time I saw her, this is a change. She was barely able to lift her leg off the bed an inch, and she was unable to move her left foot. Her left arm was weaker compared to the right. She denies numbness/ tingling or headache or dysphagia. She feels tired and dizzy, especially when she was assisted to a sitting position in bed. She reports that the dizziness is new. She denies chest pain or dyspnea, abdominal pain or GI complaints. She has chronic nocturia and has been incontinent at night. Objective Vital signs: Temperature 98.1 F 11/22/17 09:00 Pulse Rate 75 11/22/17 09:04 Respiratory Rate 16 11/22/17 09:00 Blood Pressure 192/101 H 11/22/17 09:04 Pulse Oximetry 96 11/22/17 09:00 Height/Weight/BMI: Weight 72.9 kg - Constitutional Present: no acute distress, well nourished, well developed - Routine HEENT Exam Head: Present: normocephalic, atraumatic Eye: Present: PERRL. Absent: conjunctival icterus, scleral injection ENT: Present: oropharynx clear. Absent: dentition normal - Routine Respiratory Exam Present: CTA bilaterally - Routine Cardiovascular Exam Present: RRR, S1, S2 - Routine Abdominal Exam Present: soft, normoactive bowel sounds, non distended, non tender - Routine Extremities Exam Present: no edema, pulses intact - Routine Musculoskeletal Exam Musculoskeletal: Present: no clubbing or cyanosis. Absent: moving extremities well - Routine Skin Exam Present: intact, dry, warm - Routine Neurological Exam Present: alert, oriented X3, CN II-XII intact, motor deficit (Left deltoid/bicep /tricep/plant manager 3/5 compared to right 5/5; left hip, quad 2/5 and 0/5 for ankle dorsi/plantar flextion.). Absent: moving all extremities - Routine Psychiatric Exam Present: normal affect, normal thought process, cooperative Results - Labs CBC & Chem 7: 11/20/17 04:05 11/22/17 04:24 Assessment and Plan (1) Left leg weakness Current visit: Yes Status: Acute Assessment and Plan: IMPRESSION 2 Acute small right MCA territory ischemic strokes TRIPP - resolved CKD stage III - baseline creatinine 1.7 Right renal mass 4.3 cm Hyperglycemia, hx of DM type 2-A1c 11.6-poorly controlled Leukocytosis and thrombocytosis, POA History of Atrial fibrillation, not on anticoagulation History of TIA HTN Hyperlipidemia-poorly controlled despite use of pravastatin Asthma Hypothyroidism Migraines Positive [place] Noncompliant as an outpatient with referrals to nephrology and cardiology Hypokalemia (Not POA) - resolved PLAN Will obtain stat CT head d/t worsening neurologic symptoms including more severe left leg and left arm weakness. BP higher this am with diastolic >100. Routine nifedipine was added in addition to BB. Continue Plavix, statin. PT/OT will need to re-evaluate given worsening symptoms. BGM uncontrolled. Will add short acting insulin at meals (6 U with breakfast, 6 U with lunch, 4 U with dinner); consider consulting Dr. Acuña. Unsafe to discharge home today. DVT Prophylaxis: SCD's, Lovenox Resuscitation Status: Full Code - Time spent with patient Time with patient PN: 25 minutes - Physician Narrative Physician: Juan Franklin MD Narrative: Date: 11/22/17 Time: 1914 Have independently interviewed and examined pt. Chart reviewed. Case discussed with CM and my DRAINMAN. Care plan developed with my supervision; agree with above. Rough day. Left arm and leg feeling more weak-harder to move and walk. Breathing stable. No nausea. Eating okay. Lungs: clear bilaterally. CV: regular AB: soft nt/nd +BS Neuro: decreased left hand plant manager as compared to right. MSE: awake alert Plan: Repeat CT not showing hemorrhagic transformation. Continue with therapy to help improve functional status. BP with elevation-Nifedipine just restarted this am. Insulin added with meal to help sugar. Continue with supportive care- patient not stable for discharge today. Hospital Course Summary Disclaimer: The visit summary below is not to be considered part of the above Progress Note. Hospital Course: 11/19 Admit, observation status, under the hospitalist service. Left leg weakness, left arm coordination deficit, and ataxia/gait instability -stroke w/u with MRI, echo, carotid doppler, lipid panel -cont statin and ASA but consider plavix or anticoag with hx of a-fib -check ekg and monitor tele -PT/OT/ST consult -check B12 d/t paresthesias -check TSH TRIPP -last creatinine on file was 1.3 in 2016 -bladder scan, check UA -IVF: NS @ 125 mL/hr -renal sono ordered -meds reviewed: no nephrotoxic agents identified Hyperglycemia, DM2 -check A1c -cont home insulin and add medium-dose SSI -CC diet; may need diabetic education 11/21 Continue with Plavix given CVA. May consider full anticoagulation in 1-2 weeks. Statin added at admission Resume home Betablocker for better BP control. Home Nifedipine remains on hold for now. Working with PT/OT who recommend home health 11/[address] head d/t worsening neurologic symptoms including more severe left leg and left arm weakness. BP higher this am with diastolic >100. Routine nifedipine was added in addition to BB. Continue Plavix, statin. PT/OT will need to re-evaluate given worsening symptoms. BGM uncontrolled. Will add short acting insulin at meals (6 U with breakfast, 6 U with lunch, 4 U with dinner); consider consulting Dr. Acuña.
--- NOTE | 2017-11-22 09:29 | CT Scan Report ---
Indication: increased left arm and leg weakness PROCEDURE: CT head/brain wo con: Encounter: Initial Comparison: Head CT dated November 19, 2017 and brain MRI dated November 20, 2017 Technique: Axial CT images through the head were performed without contrast. Iterative Reconstruction dose reducing technique was utilized. FINDINGS: The ventricles are of normal size, shape, and contour for the patient's age. Extensive white matter disease is not visibly changed. No evidence of hemorrhagic transformation in the two small areas of known right MCA infarct which blend with the existing extensive white matter lesions. The brainstem, cerebellum, and cerebral hemispheres otherwise have a normal morphology and CT attenuation. There is no evidence of midline displacement. No hemorrhage is evident. The visualized portions of the skull base, midface, and calvarium demonstrate no abnormality. The paranasal sinuses are well aerated and free of significant disease. The tympanic and mastoid cavities appear normal. IMPRESSION: Stable appearance of the brain without evidence of hemorrhagic transformation in the right MCA strokes. .
[2017-11-22] MEDS ORDERED: INSULIN REGULAR, HUMAN 100 UNIT/ML INJECTION SQ SCH (09:30)
[2017-11-22] MEDS: INSULIN GLARGINE 100unit/ml INJECTION SQ SCH (09:55)
[2017-11-22] MEDS: SALINE FLUSH 10ml SYRINGE IVF PRN ×2 (12:45→23:13)
[2017-11-22] MEDS: INSULIN REGULAR, HUMAN 100 UNIT/ML INJECTION SQ PRN (16:08)
[2017-11-22] MEDS: INSULIN REGULAR, HUMAN 100 UNIT/ML INJECTION SQ SCH (16:08)
[2017-11-22] MEDS: ACETAMINOPHEN 325 MG TABLET PO PRN (20:27)
[2017-11-22] MEDS: ATORVASTATIN 40 MG TABLET PO SCH (20:27)
[2017-11-23] MEDS: LEVOTHYROXINE 50 MCG TABLET PO SCH (06:25)
[2017-11-23] MEDS: ENOXAPARIN 30 MG/0.3 ML INJECTION SQ SCH (09:09)
[2017-11-23] MEDS: AMIODARONE 200 MG TABLET PO SCH (09:09)
[2017-11-23] MEDS: INSULIN REGULAR, HUMAN 100 UNIT/ML INJECTION SQ SCH ×2 (09:09→17:32)
[2017-11-23] MEDS: MECLIZINE 25 MG TABLET PO SCH ×2 (09:09→21:39)
[2017-11-23] MEDS: CLOPIDOGREL 75 MG TABLET PO SCH (09:09)
[2017-11-23] MEDS: INSULIN GLARGINE 100unit/ml INJECTION SQ SCH (10:50)
[2017-11-23] MEDS: INSULIN REGULAR, HUMAN 100 UNIT/ML INJECTION SQ PRN (11:07)
--- NOTE | 2017-11-23 13:54 | Progress Note ---
- Date 11/23/17 Subjective: Clarisa is doing worse again today. She has no control of her left arm, so now left leg and left arm are flaccid. She has new facial numbness and facial asymmetry. No SOA or chest pain. Objective Vital signs: Temperature 97.6 F 11/23/17 07:38 Pulse Rate 84 11/23/17 12:03 Respiratory Rate 22 11/23/17 12:03 Blood Pressure 129/66 11/23/17 12:03 Pulse Oximetry 95 11/23/17 12:03 Height/Weight/BMI: Weight 72.6 kg - Constitutional Present: no acute distress, well nourished, well developed - Routine HEENT Exam Head: Present: normocephalic Eye: Absent: conjunctival icterus, scleral injection ENT: Present: mucous membranes moist - Routine Respiratory Exam Present: CTA bilaterally - Routine Cardiovascular Exam Present: RRR, S1, S2 - Routine Abdominal Exam Present: soft, normoactive bowel sounds, non distended, non tender - Routine Extremities Exam Present: no edema, pulses intact, normal capillary refill - Routine Skin Exam Present: intact, dry, warm - Routine Neurological Exam Present: alert, oriented X3, motor deficit (left arm & left leg are flaccid). Absent: CN II-XII intact (left facial droop, unequal smile, tongue deviation), moving all extremities - Routine Psychiatric Exam Present: normal thought process, cooperative Results - Labs CBC & Chem 7: 11/23/17 04:29 11/23/17 04:29 Assessment and Plan (1) Left leg weakness Current visit: Yes Status: Acute Assessment and Plan: IMPRESSION 2 Acute small right MCA territory ischemic strokes Left hemiparesis secondary to CVA TRIPP - resolved CKD stage III - baseline creatinine 1.7 Right renal mass 4.3 cm Hyperglycemia, hx of DM type 2-A1c 11.6-poorly controlled Leukocytosis and thrombocytosis, POA History of Atrial fibrillation, not on anticoagulation History of TIA HTN Hyperlipidemia-poorly controlled despite use of pravastatin Asthma Hypothyroidism Migraines Positive [place] Noncompliant as an outpatient with referrals to nephrology and cardiology Hypokalemia (Not POA) - resolved PLAN Increased symptoms again today with left arm/leg flaccidity and left facial droop and tongue deviation. Consulted Dr. Smith - this condition is also seen 3 days post stroke, and unfortunately other than medication and therapy there are no treatments. He agrees with repeating MRI brain -- if this looks like there is mass effect could consider starting mannitol. He recommends starting Decadron 2 mg PO BID now. If the MR shows significant change, he will see Clarisa tomorrow morning, otherwise it will be on SundayNov 26. Creatinine increased to 2.3. Start 1/2 NS at 100 mL/hr. Monitor BG after adding mealtime insulin yesterday. D/W Dr. Franklin. Continue PT/OT, Plavix, Statin. Rigoberto MRI showing extension of stroke - no hemorrhagic transformation DVT Prophylaxis: Lovenox Resuscitation Status: Full Code - Physician Narrative Physician: Juan Franklin MD Narrative: Date: 11/23/17 Time: 2124 Have independently interviewed and examine pt. Chart reviewed. Case discussed with Dr Smith, patient's son, and my DIRECTOR DATA ARCHITECTURE. Care plan developed with my supervision; agree with above. Much more weak to left side-not able to move left arm or leg at all. Notes some numbness to face. SWANSON and nausea present. Not having appetite. Breathing stable. Lungs: clear bilaterally CV: regular AB: soft nt/nd +BS Neuro: flaccid left side-not able to move arm or leg. Plan: Case discussed with Dr Smith. Repeat MRI showing extention of stroke, but no mass effect or hemorrhagic transformation. Decadron started at 2mg BID. IVF initiated secondary to decrease oral intake and increasing creatinine. Continue with supportive care and therapy. Hospital Course Summary Disclaimer: The visit summary below is not to be considered part of the above Progress Note. Hospital Course: 11/19 Admit, observation status, under the hospitalist service. Left leg weakness, left arm coordination deficit, and ataxia/gait instability -stroke w/u with MRI, echo, carotid doppler, lipid panel -cont statin and ASA but consider plavix or anticoag with hx of a-fib -check ekg and monitor tele -PT/OT/ST consult -check B12 d/t paresthesias -check TSH TRIPP -last creatinine on file was 1.3 in 2016 -bladder scan, check UA -IVF: NS @ 125 mL/hr -renal sono ordered -meds reviewed: no nephrotoxic agents identified Hyperglycemia, DM2 -check A1c -cont home insulin and add medium-dose SSI -CC diet; may need diabetic education 11/21 Continue with Plavix given CVA. May consider full anticoagulation in 1-2 weeks. Statin added at admission Resume home Betablocker for better BP control. Home Nifedipine remains on hold for now. Working with PT/OT who recommend home health 11/[address] head d/t worsening neurologic symptoms including more severe left leg and left arm weakness. BP higher this am with diastolic >100. Routine nifedipine was added in addition to BB. Continue Plavix, statin. PT/OT will need to re-evaluate given worsening symptoms. BGM uncontrolled. Will add short acting insulin at meals (6 U with breakfast, 6 U with lunch, 4 U with dinner); consider consulting Dr. Acuña. 11/23 Increased symptoms again today with left arm/leg flaccidity and left facial droop and tongue deviation. Consulted Dr. Smith - this condition is also seen 3 days post stroke, and unfortunately other than medication and therapy there are no treatments. He agrees with repeating MRI brain -- if this looks like there is mass effect could consider starting mannitol. He recommends starting Decadron 2 mg PO BID now. If the MR shows significant change, he will see Clarisa tomorrow morning, otherwise it will be on SundayNov 26. Creatinine increased to 2.3. Start 1/2 NS at 100 mL/hr. Monitor BG after adding mealtime insulin yesterday. D/W Dr. Franklin. Continue PT/OT, Plavix, Statin.
[2017-11-23] MEDS: SALINE FLUSH 10ml SYRINGE IVF PRN (14:35)
[2017-11-23] MEDS: DEXAMETHASONE 1 MG TABLET PO SCH ×2 (14:35→21:39)
[2017-11-23] MEDS: 1/2 NS 1,000 ML IV SCH (14:36)
[2017-11-23] MEDS: ACETAMINOPHEN 325 MG TABLET PO PRN (18:23)
--- NOTE | 2017-11-23 18:25 | Magnetic Resonance Report ---
Indication: left arm/leg flaccid, left facial droop PROCEDURE: MR head/brain wo con: Encounter: Initial Comparisons: Brain MRI dated November 20, 2017 Technique: Multiplanar, multisequence, MR imaging of the head without contrast was acquired. FINDINGS: The prior areas of diffusion restriction on the recent comparison MRI have enlarged. The region in the right posterior limb of the internal capsule measures 1.2 cm in length compared to 0.8 cm previously. The periventricular area of diffusion restriction on axial image #59 now measures 2.6 x 1.3 cm in size compared to 1 x 1 cm on the prior study. No additional new areas of acute diffusion restriction. Ventricles are stable. No evidence of hemorrhagic transformation. Extensive T2/FLAIR white matter disease throughout both cerebral hemispheres, similar to the prior study. Impression: Interval enlargement of the existing acute right MCA territory infarcts as measured above. No evidence of hemorrhagic transformation. .
[2017-11-23] MEDS: ATORVASTATIN 40 MG TABLET PO SCH (21:39)
[2017-11-24] MEDS: 1/2 NS 1,000 ML IV SCH ×2 (02:21→13:32)
[2017-11-24] MEDS: ACETAMINOPHEN 325 MG TABLET PO PRN ×3 (05:39→23:05)
[2017-11-24] MEDS: LEVOTHYROXINE 50 MCG TABLET PO SCH (05:40)
[2017-11-24] MEDS: DEXAMETHASONE 1 MG TABLET PO SCH ×2 (10:28→23:01)
[2017-11-24] MEDS: CLOPIDOGREL 75 MG TABLET PO SCH (10:28)
[2017-11-24] MEDS: AMIODARONE 200 MG TABLET PO SCH (10:28)
[2017-11-24] MEDS: INSULIN GLARGINE 100unit/ml INJECTION SQ SCH (10:29)
[2017-11-24] MEDS: MECLIZINE 25 MG TABLET PO SCH ×2 (10:29→23:01)
[2017-11-24] MEDS: INSULIN REGULAR, HUMAN 100 UNIT/ML INJECTION SQ SCH ×2 (10:29→17:50)
[2017-11-24] MEDS: ENOXAPARIN 30 MG/0.3 ML INJECTION SQ SCH (10:30)
[2017-11-24] MEDS: ASPIRIN 81 MG CHEWABLE TABLET PO SCH (10:36)
--- NOTE | 2017-11-24 11:10 | Consultation ---
DATE OF CONSULTATION 11/24/[address] Franklin CHIEF COMPLAINT Left-sided weakness and numbness. HISTORY OF PRESENT ILLNESS Patient is a 57-year-old female with history of stroke affecting the left cerebellar area, atrial fibrillation, hypertension, hyperlipidemia, diabetes mellitus type 2, asthma, hypothyroidism and migraines. The patient presented with acute-onset left-sided numbness and weakness. This started on November. The patient's symptoms quickly evolved initially and she had traveling numbness in her arm and leg. The patient was taking a baby aspirin on admission and she was started on Plavix. Her symptoms stabilized initially and she was still able to move her left side. She had an MRI of the brain that showed an acute stroke in the right basal ganglia area. The patients condition got worse yesterday. She had more profound weakness on the left side and worse coordination problems. She had a CT of the head that showed no acute bleed. She then had an MRI of the brain that showed evolution of the right ganglia stroke with increased size compared to the previous MRI. The patient had a carotid Doppler that showed no significant stenosis. Echocardiogram was unremarkable. The patient has a history of atrial fibrillation but she has been in sinus rhythm throughout her admission. The patient is being monitored on telemetry. Her lab work showed some mild dehydration. Her sugar levels have been slightly elevated. They have been in the [address] [place] most of the time. The patients blood pressure has been in the 140-160 range systolic. She has been complaining of headache which can be rated as moderate to severe most of the time. The patient was given some Tylenol for the headache with no significant benefit. Patient was started on Decadron 2 mg twice a day to help with her stroke, edema and headache. On physical examination the patient was drowsy - just woke up. Her pupils were round, reactive and equal. Extraocular muscles were intact. Visual field was difficult to assess due to drowsiness. Motor examination in the right upper and lower extremities was 5/5 on the left upper, lower extremity was 0-1/5. Sensory examination was diminished on the left compared to the right for light touch and pinprick sensation. Deep tendon reflexes were 2/4. Plantar reflexes were upgoing on the left and downgoing on the right. Coordination was limited due to weakness. Speech was slow and articulate. ASSESSMENT Acute ischemic stroke affecting the right basal ganglia area including the thalamus. This has been evolving during the course of the admission due to poor collateral arteries supplying the same area. Patient has a history of atrial fibrillation but she has been in sinus rhythm throughout the admission. It is unknown whether or not the patient had some abnormal heart rhythm prior to admission. The patient denies having palpitations, chest pain or shortness of breath during the whole process. The patient had an unremarkable carotid Doppler and echocardiogram. PLAN 1. Continue Plavix and consider adding baby aspirin 81 mg p.o. q.d. 2. Continue Lovenox for DVT prophylaxis. 3. Optimize treatment for hypertension and hyperlipidemia and keep the LDL around 70. 4. The patient will need long-term physical, occupational and speech therapy and she will be a good candidate for rehabilitation. 5. Consider having a cardiology consultation and potential PAZ to rule out any silent clot in the heart. 6. Monitor blood glucose level closely. The patient can have worsening of symptoms due to extreme high and extreme low blood sugar levels. 7. Continue Decadron 2 mg p.o. b.i.d. to help with headache and prevent further increase in edema surrounding the stroke area. MTDD
[2017-11-24] MEDS ORDERED: BISACODYL 10 MG SUPPOSITORY RECTALLY PRN (12:23)
--- NOTE | 2017-11-24 12:47 | Progress Note ---
- Date 11/24/17 Subjective: F/U: Right MCA territory ischemic strokes, Left hemiparesis secondary to CVA Little improvement in left sided weakness-not able to move arm/leg on own. Son at bedside-doing ROM activities with mother. Note SWANSON and nausea. Able to eat about 50% meals. Breathing stable. No stool output. Objective Vital signs: Temperature 97.8 F 11/24/17 07:53 Pulse Rate 64 11/24/17 08:00 Respiratory Rate 16 11/24/17 07:53 Blood Pressure 148/69 H 11/24/17 07:53 Pulse Oximetry 94 11/24/17 07:53 Height/Weight/BMI: Weight 72.9 kg - Constitutional Present: well nourished, well developed, cooperative - Routine HEENT Exam Head: Present: normocephalic, atraumatic Eye: Present: EOMI, PERRL ENT: Present: mucous membranes moist - Routine Respiratory Exam Present: CTA bilaterally. Absent: rales, respiratory distress, rhonchi - Routine Cardiovascular Exam Present: RRR, no murmur - Routine Abdominal Exam Present: soft, normoactive bowel sounds, non distended, non tender. Absent: guarding - Routine Extremities Exam Present: edema (Trace BLE ), pulses intact. Absent: cyanosis, clubbing - Routine Musculoskeletal Exam Musculoskeletal: Present: no clubbing or cyanosis - Routine Skin Exam Present: dry, warm - Routine Neurological Exam Present: alert, oriented X3, motor deficit (Left hemiparesis), vision grossly intact, hearing grossly intact, normal speech. Absent: altered mental status - Routine Psychiatric Exam Present: normal affect, normal thought process Results - Labs CBC & Chem 7: 11/24/17 05:01 11/24/17 05:01 Assessment and Plan (1) Left leg weakness Current visit: Yes Status: Acute Assessment and Plan: IMPRESSION 2 Acute small right MCA territory ischemic strokes Extension of stroke - no hemorrhagic transformation Left hemiparesis secondary to CVA TRIPP (POA) CKD stage III - baseline creatinine 1.7 Right renal mass 4.3 cm Type II DM type 2 - A1c 11.6-poorly controlled Leukocytosis and thrombocytosis, POA History of Atrial fibrillation, not on anticoagulation History of TIA HTN Hyperlipidemia-poorly controlled despite use of pravastatin Asthma Hypothyroidism Migraines Positive [place] Noncompliant as an outpatient with referrals to nephrology and cardiology Hypokalemia (Not POA) - resolved PLAN ASA added to Plavix for cerebral protection. Continue Lovenox for DVR prevention. Will continue with IVF to maintain hydration as oral intake variable. Blood sugars with variability due to variable oral intake. Encourage continue therapy. PAZ prudent due to Hx afib. Discussed case at length with patient and her son. Questions answered. Will need rehabilitation at time of discharge. Recheck BMP in am due to TRIPP and medication use. Will recheck CBC in am due to leukocytosis. Case discussed with Dr Zacarias and family. Time spent with patient care 35 minutes. DVT Prophylaxis: Lovenox Resuscitation Status: Full Code - Time spent with patient Time with patient PN: 35 minutes - Physician Narrative Physician: Juan Franklin MD Narrative: Date: 11/24/17 Time: 1242 Hospital Course Summary Disclaimer: The visit summary below is not to be considered part of the above Progress Note. Hospital Course: 11/19 Admit, observation status, under the hospitalist service. Left leg weakness, left arm coordination deficit, and ataxia/gait instability -stroke w/u with MRI, echo, carotid doppler, lipid panel -cont statin and ASA but consider plavix or anticoag with hx of a-fib -check ekg and monitor tele -PT/OT/ST consult -check B12 d/t paresthesias -check TSH TRIPP -last creatinine on file was 1.3 in 2016 -bladder scan, check UA -IVF: NS @ 125 mL/hr -renal sono ordered -meds reviewed: no nephrotoxic agents identified Hyperglycemia, DM2 -check A1c -cont home insulin and add medium-dose SSI -CC diet; may need diabetic education 11/21 Continue with Plavix given CVA. May consider full anticoagulation in 1-2 weeks. Statin added at admission. Resume home Beta deena for better BP control. Home Nifedipine remains on hold for now. Working with PT/OT who recommend home health. 11/[address] head d/t worsening neurologic symptoms including more severe left leg and left arm weakness. BP higher this am with diastolic >100. Routine nifedipine was added in addition to BB. Continue Plavix, statin. PT/OT will need to re-evaluate given worsening symptoms. BGM uncontrolled. Will add short acting insulin at meals (6 U with breakfast, 6 U with lunch, 4 U with dinner). 11/23 Increased symptoms again today with left arm/leg flaccidity and left facial droop and tongue deviation. Consulted Dr. Smith - this condition is also seen 3 days post stroke, and unfortunately other than medication and therapy there are no treatments. He agrees with repeating MRI brain -- if this looks like there is mass effect could consider starting mannitol. He recommends starting Decadron 2 mg PO BID now. Creatinine increased to 2.3. Start 10/02 NS at 100 mL/hr. Monitor BG after adding mealtime insulin yesterday. D/W Dr. Franklin. Continue PT/OT, Plavix, Statin. 11/24 ASA added to Plavix for cerebral protection. Continue Lovenox for DVR prevention. Will continue with IVF to maintain hydration as oral intake variable. Blood sugars with variability due to variable oral intake and Decadron. Encourage continue therapy. PAZ prudent due to Hx afib. Discussed case at length with patient and her son. Questions answered. Will need rehabilitation at time of discharge.
[2017-11-24] MEDS: ATORVASTATIN 40 MG TABLET PO SCH (23:01)
[2017-11-25] MEDS: 1/2 NS 1,000 ML IV SCH ×3 (00:15→20:47)
[2017-11-25] MEDS: LEVOTHYROXINE 50 MCG TABLET PO SCH (05:54)
[2017-11-25] MEDS: INSULIN REGULAR, HUMAN 100 UNIT/ML INJECTION SQ PRN ×4 (06:34→20:56)
[2017-11-25] MEDS: INSULIN REGULAR, HUMAN 100 UNIT/ML INJECTION SQ SCH ×2 (09:09→18:08)
[2017-11-25] MEDS: INSULIN GLARGINE 100unit/ml INJECTION SQ SCH (09:09)
[2017-11-25] MEDS: ENOXAPARIN 30 MG/0.3 ML INJECTION SQ SCH (09:10)
[2017-11-25] MEDS: CLOPIDOGREL 75 MG TABLET PO SCH (09:12)
[2017-11-25] MEDS: MECLIZINE 25 MG TABLET PO SCH ×2 (09:13→20:56)
[2017-11-25] MEDS: DEXAMETHASONE 1 MG TABLET PO SCH ×2 (09:13→20:49)
[2017-11-25] MEDS: ASPIRIN 81 MG CHEWABLE TABLET PO SCH (09:14)
[2017-11-25] MEDS: AMIODARONE 200 MG TABLET PO SCH (09:14)
--- NOTE | 2017-11-25 12:11 | Progress Note ---
- Date 11/25/17 Subjective: Clarisa is seen today with son and daughter in law at her side. She continues to be frustrated regarding left side paralysis. Discussed in detail with patient, son and [id number] regarding extension of initial CVA causing worsening symptoms. We discussed rehabilitation options and they all are in agreement. They would like her to be in aggressive therapy such as IRU. She denies having any pain, shortness of breath, nausea. She is having constipation. Stools have been hard. Recommended removing silver ring from left 4th finger as her hand does appear mildly swollen. Son did remove ring while I was in the room examining patient. Objective Vital signs: Temperature 97.2 F 11/25/17 07:42 Pulse Rate 71 11/25/17 08:00 Respiratory Rate 16 11/25/17 07:42 Blood Pressure 158/81 H 11/25/17 07:42 Pulse Oximetry 97 11/25/17 07:42 Height/Weight/BMI: Weight 73.6 kg - Constitutional Present: no acute distress, well nourished, well developed - Routine HEENT Exam Eye: Present: EOMI ENT: Present: mucous membranes moist, dentition normal - Routine Respiratory Exam Present: CTA bilaterally. Absent: wheezes - Routine Cardiovascular Exam Present: RRR, S1, S2. Absent: murmur - Routine Abdominal Exam Present: soft, normoactive bowel sounds, non distended. Absent: tenderness - Routine Extremities Exam Comments: Left hand swollen likely lymphedema from acute paralysis - Routine Skin Exam Present: intact, dry, warm - Routine Neurological Exam Present: alert, oriented X3, CN II-XII intact, motor deficit (Left sided) - Routine Lymphatic Exam Lymphatic: Absent: adenopathy - Routine Psychiatric Exam Present: normal affect, cooperative Results - Labs CBC & Chem 7: 11/25/17 04:21 11/25/17 04:21 Assessment and Plan (1) Left leg weakness Current visit: Yes Status: Acute Assessment and Plan: IMPRESSION 2 Acute small right MCA territory ischemic strokes Extension of stroke - no hemorrhagic transformation Left hemiparesis secondary to CVA TRIPP (POA) CKD stage III - baseline creatinine 1.7 Right renal mass 4.3 cm Type II DM type 2 - A1c 11.6-poorly controlled Leukocytosis and thrombocytosis, POA History of Atrial fibrillation, not on anticoagulation History of TIA HTN Hyperlipidemia-poorly controlled despite use of pravastatin Asthma Hypothyroidism Migraines Positive [place] Noncompliant as an outpatient with referrals to nephrology and cardiology Hypokalemia (Not POA) - resolved PLAN ASA and Plavix for cerebral protection. Continue Lovenox for DVR prevention. Will need to talk with Cardiology team tomorrow regarding possible PAZ. IRU screen placed for tomorrow morning given Acute CVA extension with left hemiparesis Patient had resided at home independently and is hopeful for aggressive rehabilitation. Continue to manage glucose current regimen Creatinine is stable as baseline is 1.7. Appreciated consultation by Dr Smith DVT Prophylaxis: SCD's, Lovenox Resuscitation Status: Full Code - Time spent with patient Time with patient PN: 25 minutes Coordination of Care: >50% of visit spent providing counseling/coordination of care - Physician Narrative Physician: Juan Franklin MD Narrative: Date: 11/25/17 Time: 1534 Have independently interviewed and examined pt. Chart reviewed. Case discussed with my ROOM DESIGNER. Care plan developed with my supervision; agree with above. Still weak on left side. Not having nausea, but no appetite. Breathing well. No chest pain. Lungs: Clear CV: regular AB: Soft nt/nd MSE: awake alert Plan: Continue with supportive care. Will consult with Dr Loving for PAZ for tomorrow-NPO after midnight due to anticipated PAZ. Hospital Course Summary Disclaimer: The visit summary below is not to be considered part of the above Progress Note. Hospital Course: 11/19 Admit, observation status, under the hospitalist service. Left leg weakness, left arm coordination deficit, and ataxia/gait instability -stroke w/u with MRI, echo, carotid doppler, lipid panel -cont statin and ASA but consider plavix or anticoag with hx of a-fib -check ekg and monitor tele -PT/OT/ST consult -check B12 d/t paresthesias -check TSH TRIPP -last creatinine on file was 1.3 in 2016 -bladder scan, check UA -IVF: NS @ 125 mL/hr -renal sono ordered -meds reviewed: no nephrotoxic agents identified Hyperglycemia, DM2 -check A1c -cont home insulin and add medium-dose SSI -CC diet; may need diabetic education 11/21 Continue with Plavix given CVA. May consider full anticoagulation in 1-2 weeks. Statin added at admission. Resume home Beta deena for better BP control. Home Nifedipine remains on hold for now. Working with PT/OT who recommend home health. 11/[address] head d/t worsening neurologic symptoms including more severe left leg and left arm weakness. BP higher this am with diastolic >100. Routine nifedipine was added in addition to BB. Continue Plavix, statin. PT/OT will need to re-evaluate given worsening symptoms. BGM uncontrolled. Will add short acting insulin at meals (6 U with breakfast, 6 U with lunch, 4 U with dinner). 11/23 Increased symptoms again today with left arm/leg flaccidity and left facial droop and tongue deviation. Consulted Dr. Smith - this condition is also seen 3 days post stroke, and unfortunately other than medication and therapy there are no treatments. He agrees with repeating MRI brain -- if this looks like there is mass effect could consider starting mannitol. He recommends starting Decadron 2 mg PO BID now. Creatinine increased to 2.3. Start 1/2 NS at 100 mL/hr. Monitor BG after adding mealtime insulin yesterday. D/W Dr. Franklin. Continue PT/OT, Plavix, Statin. 11/24 ASA added to Plavix for cerebral protection. Continue Lovenox for DVR prevention. Will continue with IVF to maintain hydration as oral intake variable. Blood sugars with variability due to variable oral intake and Decadron. Encourage continue therapy. PAZ prudent due to Hx afib. Discussed case at length with patient and her son. Questions answered. Will need rehabilitation at time of discharge. PLAN ASA and Plavix for cerebral protection. Continue Lovenox for DVR prevention. Will need to talk with Cardiology team tomorrow regarding possible PAZ. IRU screen placed for tomorrow morning given Acute CVA extension with left hemiparesis Patient had resided at home independently and is hopeful for aggressive rehabilitation. Continue to manage glucose current regimen Creatinine is stable as baseline is 1.7. Appreciated consultation by Dr Smith
[2017-11-25] MEDS: ATORVASTATIN 40 MG TABLET PO SCH (20:48)
[2017-11-25] MEDS: GABAPENTIN 300 MG CAPSULE PO SCH (20:56)
[2017-11-26] MEDS: INSULIN REGULAR, HUMAN 100 UNIT/ML INJECTION SQ PRN ×2 (06:30→22:09)
[2017-11-26] MEDS: LEVOTHYROXINE 50 MCG TABLET PO SCH (06:30)
[2017-11-26] MEDS: 1/2 NS 1,000 ML IV SCH ×2 (06:35→17:04)
[2017-11-26] MEDS: INSULIN REGULAR, HUMAN 100 UNIT/ML INJECTION SQ SCH ×2 (08:19→18:22)
[2017-11-26] MEDS: ASPIRIN 81 MG CHEWABLE TABLET PO SCH (08:20)
[2017-11-26] MEDS: INSULIN GLARGINE 100unit/ml INJECTION SQ SCH (08:20)
[2017-11-26] MEDS: DEXAMETHASONE 1 MG TABLET PO SCH ×2 (08:21→20:56)
[2017-11-26] MEDS: AMIODARONE 200 MG TABLET PO SCH (08:21)
[2017-11-26] MEDS: MECLIZINE 25 MG TABLET PO SCH ×2 (08:21→20:57)
--- NOTE | 2017-11-26 09:36 | Progress Note ---
- Date 11/26/17 Subjective: Clarisa is drowsy this morning -- states that she hasn't been sleeping well. Her left arm and leg still feel heavy and she is unable to move them; however, she was able to wiggle the fingers and toes on the left. Her left sided facial droop isn't as pronounced as it was on Sunday. Objective Vital signs: Temperature 97.4 F 11/26/17 08:00 Pulse Rate 64 11/26/17 08:00 Respiratory Rate 18 11/26/17 08:00 Blood Pressure 149/73 H 11/26/17 08:00 Pulse Oximetry 96 11/26/17 08:00 Height/Weight/BMI: Weight 73.5 kg - Constitutional Present: no acute distress, well nourished, well developed - Routine HEENT Exam Eye: Absent: conjunctival icterus, scleral injection ENT: Present: oropharynx clear - Routine Respiratory Exam Present: CTA bilaterally - Routine Cardiovascular Exam Present: RRR, S1, S2 - Routine Abdominal Exam Present: soft, normoactive bowel sounds, non distended, non tender - Routine Extremities Exam Present: no edema, pulses intact, normal capillary refill - Routine Musculoskeletal Exam Musculoskeletal: Present: no clubbing or cyanosis. Absent: moving extremities well - Routine Skin Exam Present: intact, dry, warm - Routine Neurological Exam Present: alert, oriented X3, motor deficit (only movement on left side is slight movement of fingers and toes). Absent: CN II-XII intact (slight left facial droop) - Routine Psychiatric Exam Present: cooperative. Absent: normal affect (depressed) Results - Labs CBC & Chem 7: 11/26/17 04:22 11/26/17 04:22 Assessment and Plan (1) Left leg weakness Current visit: Yes Status: Acute Assessment and Plan: IMPRESSION 2 Acute right MCA territory ischemic strokes Repeat MRI: Extension of stroke - no hemorrhagic transformation Left hemiparesis secondary to CVA TRIPP (POA) CKD stage III - baseline creatinine 1.7 Right renal mass 4.3 cm Type II DM type 2 - A1c 11.6-poorly controlled Leukocytosis and thrombocytosis, POA History of Atrial fibrillation, not on anticoagulation History of TIA HTN Hyperlipidemia-poorly controlled despite use of pravastatin Asthma Hypothyroidism Migraines Positive [place] Noncompliant as an outpatient with referrals to nephrology and cardiology Hypokalemia (Not POA) - resolved PLAN Continue ASA, Plavix, statin. NPO for PAZ today. IRU screen placed. Continue Decadron as recommended by Dr. Smith. May need to increase mealtime insulin while on Decadron when diet is advanced. Labs stable. Decrease rate of IVF; could DC entirely after she is no longer NPO following PAZ. DVT Prophylaxis: SCD's Resuscitation Status: Full Code - Time spent with patient Time with patient PN: 25 minutes - Physician Narrative Physician: Juan Franklin MD Narrative: Date: 11/26/17 Time: 2134 Have independently interviewed and examined pt. Chart reviewed. Case discussed with CM and my PA. Care plan developed with my supervision; agree with above. About the same-not having much improvement in strength of left side. Tolerated PAZ-no clot noted. Nausea decreased. Breathing well. Lungs: decreased, no distress CV: regular MSE: awake alert Plan: Will continue with low flow IVF. Continue PT/OT. Looking into IRU. Monitor sugars. Hospital Course Summary Disclaimer: The visit summary below is not to be considered part of the above Progress Note. Hospital Course: 11/19 Admit, observation status, under the hospitalist service. Left leg weakness, left arm coordination deficit, and ataxia/gait instability -stroke w/u with MRI, echo, carotid doppler, lipid panel -cont statin and ASA but consider plavix or anticoag with hx of a-fib -check ekg and monitor tele -PT/OT/ST consult -check B12 d/t paresthesias -check TSH TRIPP -last creatinine on file was 1.3 in 2016 -bladder scan, check UA -IVF: NS @ 125 mL/hr -renal sono ordered -meds reviewed: no nephrotoxic agents identified Hyperglycemia, DM2 -check A1c -cont home insulin and add medium-dose SSI -CC diet; may need diabetic education 11/21 Continue with Plavix given CVA. May consider full anticoagulation in 1-2 weeks. Statin added at admission. Resume home Beta deena for better BP control. Home Nifedipine remains on hold for now. Working with PT/OT who recommend home health. 11/[address] head d/t worsening neurologic symptoms including more severe left leg and left arm weakness. BP higher this am with diastolic >100. Routine nifedipine was added in addition to BB. Continue Plavix, statin. PT/OT will need to re-evaluate given worsening symptoms. BGM uncontrolled. Will add short acting insulin at meals (6 U with breakfast, 6 U with lunch, 4 U with dinner). 11/23 Increased symptoms again today with left arm/leg flaccidity and left facial droop and tongue deviation. Consulted Dr. Smith - this condition is also seen 3 days post stroke, and unfortunately other than medication and therapy there are no treatments. He agrees with repeating MRI brain -- if this looks like there is mass effect could consider starting mannitol. He recommends starting Decadron 2 mg PO BID now. Creatinine increased to 2.3. Start / NS at 100 mL/hr. Monitor BG after adding mealtime insulin yesterday. D/W Dr. Franklin. Continue PT/OT, Plavix, Statin. 11/24 ASA added to Plavix for cerebral protection. Continue Lovenox for DVR prevention. Will continue with IVF to maintain hydration as oral intake variable. Blood sugars with variability due to variable oral intake and Decadron. Encourage continue therapy. PAZ prudent due to Hx afib. Discussed case at length with patient and her son. Questions answered. Will need rehabilitation at time of discharge. PLAN ASA and Plavix for cerebral protection. Continue Lovenox for DVR prevention. Will need to talk with Cardiology team tomorrow regarding possible PAZ. IRU screen placed for tomorrow morning given Acute CVA extension with left hemiparesis Patient had resided at home independently and is hopeful for aggressive rehabilitation. Continue to manage glucose current regimen Creatinine is stable as baseline is 1.7. Appreciated consultation by Dr Smith 11/25/17 ASA and Plavix for cerebral protection. Continue Lovenox for DVR prevention. Will need to talk with Cardiology team tomorrow regarding possible PAZ. IRU screen placed for tomorrow morning given Acute CVA extension with left hemiparesis Patient had resided at home independently and is hopeful for aggressive rehabilitation. 11/26/17 Continue ASA, Plavix, statin. NPO for PAZ today. IRU screen placed. Continue Decadron as recommended by Dr. Smith. May need to increase mealtime insulin while on Decadron when diet is advanced. Labs stable. Decrease rate of IVF. PAZ showing no atrial clot.
[2017-11-26] MEDS: CLOPIDOGREL 75 MG TABLET PO SCH (09:56)
[2017-11-26] MEDS: ENOXAPARIN 40 MG/0.4 ML INJECTION SQ SCH (09:56)
[2017-11-26] MEDS ORDERED: SALINE FLUSH 10ml SYRINGE ONE (15:11)
[2017-11-26] MEDS ORDERED: SALINE FLUSH 10ml SYRINGE IV ONE (18:01)
[2017-11-26] MEDS ORDERED: MIDAZOLAM 2mg/2ml INJECTION IVP ONE (18:01)
[2017-11-26] MEDS ORDERED: FentaNYL 100 MCG/2 ML INJECTION IVP ONE (18:01)
[2017-11-26] MEDS: GABAPENTIN 300 MG CAPSULE PO SCH (20:56)
[2017-11-26] MEDS: ATORVASTATIN 40 MG TABLET PO SCH (20:57)
[2017-11-27] MEDS: 1/2 NS 1,000 ML IV SCH ×2 (01:17→12:29)
[2017-11-27] MEDS: LEVOTHYROXINE 50 MCG TABLET PO SCH (06:09)
[2017-11-27] MEDS: INSULIN REGULAR, HUMAN 100 UNIT/ML INJECTION SQ PRN ×4 (07:06→23:35)
--- NOTE | 2017-11-27 08:24 | Transesophageal Echocardiogram ---
DATE OF PROCEDURE November 26, 2017 REFERRING PHYSICIAN Juan Franklin MD INDICATION The patient is a 57-year lady who was admitted with CVA and was referred for transesophageal echocardiogram for further evaluation. INFORMED CONSENT Informed consent was obtained after explaining the procedure and the potential risks to the patient who agreed to proceed with the procedure. PROCEDURE 1. Transesophageal echocardiogram. Conscious sedation was performed using Versed and fentanyl. Cetacaine spray was used for pharyngeal anesthesia. Probe was advanced into the esophagus and stomach and images were obtained in multiple planes. Left atrial dimension is normal. Left ventricle end-diastolic dimension is normal. Left ventricle wall thickness is increased. LV systolic function is normal with ejection fraction of 65%. There is no thrombus in left atrium, left atrial appendage or left ventricle. Right atrium is normal. Right ventricle is normal. Mitral valve is morphologically normal with trace of mitral regurgitation. Aortic valve is a trileaflet structure with no stenosis or insufficiency. Tricuspid valve is morphologically normal with trace of tricuspid regurgitation. Pulmonary valve appears to be normal. There is no pericardial effusion. Agitated saline was injected which showed no evidence of [id number] shunt. Descending thoracic aorta appears to be free of significant atherosclerosis. IMPRESSION 1. No intracardiac thrombus or mass. 2. Normal LV systolic function with ejection fraction of about 65%. 3. Mild concentric left ventricular hypertrophy. 4. Trace of mitral regurgitation. 5. Trace of tricuspid regurgitation. 6. No evidence of [id number] shunt using agitated saline. MTDD
[2017-11-27] MEDS: INSULIN GLARGINE 100unit/ml INJECTION SQ SCH (09:13)
[2017-11-27] MEDS: MECLIZINE 25 MG TABLET PO SCH ×2 (09:14→21:44)
[2017-11-27] MEDS: INSULIN REGULAR, HUMAN 100 UNIT/ML INJECTION SQ SCH ×2 (09:14→16:01)
[2017-11-27] MEDS: ASPIRIN 81 MG CHEWABLE TABLET PO SCH (09:14)
[2017-11-27] MEDS: ENOXAPARIN 40 MG/0.4 ML INJECTION SQ SCH (09:15)
[2017-11-27] MEDS: AMIODARONE 200 MG TABLET PO SCH (09:16)
[2017-11-27] MEDS: DEXAMETHASONE 1 MG TABLET PO SCH ×2 (09:16→21:44)
[2017-11-27] MEDS: CLOPIDOGREL 75 MG TABLET PO SCH (09:28)
--- NOTE | 2017-11-27 20:31 | Progress Note ---
- Date 11/27/17 Subjective: F/U: CVA with left hemiparesis Little change in weakness-not able to control left arm or leg. SWANSON resolved. Nausea decreased. Eating well. Breathing well. Creatinine with decrease to 1.7. Objective Vital signs: Temperature 96.8 F 11/27/17 20:00 Pulse Rate 66 11/27/17 20:00 Respiratory Rate 16 11/27/17 20:00 Blood Pressure 154/72 H 11/27/17 20:00 Pulse Oximetry 96 11/27/17 20:00 Height/Weight/BMI: Weight 75 kg - Constitutional Present: well nourished, well developed, average body habitus, morbidly obese - Routine HEENT Exam Head: Present: normocephalic, atraumatic Eye: Present: EOMI, PERRL ENT: Present: mucous membranes moist - Routine Respiratory Exam Present: CTA bilaterally. Absent: respiratory distress - Routine Cardiovascular Exam Present: RRR, no murmur - Routine Abdominal Exam Present: soft, normoactive bowel sounds, non distended, non tender - Routine Extremities Exam Present: pulses intact. Absent: cyanosis, clubbing - Routine Skin Exam Present: dry, warm - Routine Neurological Exam Present: alert, motor deficit (Left upper/lower hemiparesis), vision grossly intact, hearing grossly intact. Absent: moving all extremities - Routine Psychiatric Exam Present: normal affect, cooperative Results - Labs CBC & Chem 7: 11/26/17 04:22 11/27/17 04:22 Assessment and Plan (1) Left leg weakness Current visit: Yes Status: Acute Assessment and Plan: IMPRESSION 2 Acute right MCA territory ischemic strokes Repeat MRI: Extension of stroke - no hemorrhagic transformation Left hemiparesis secondary to CVA TRIPP (POA) CKD stage III - baseline creatinine 1.7 Right renal mass 4.3 cm Type II DM type 2 - A1c 11.6-poorly controlled Leukocytosis and thrombocytosis, POA History of Atrial fibrillation, not on anticoagulation History of TIA HTN Hyperlipidemia-poorly controlled despite use of pravastatin Asthma Hypothyroidism Migraines Positive [place] Noncompliant as an outpatient with referrals to nephrology and cardiology Hypokalemia (Not POA) - resolved PLAN Creatinine showing improvement. Oral drive still doing well. Will stop IVF. Continue with therapy. CM working on discharge disposition. DVT Prophylaxis: SCD's, Lovenox Resuscitation Status: Full Code - Time spent with patient Time with patient PN: 15 minutes - Physician Narrative Physician: Juan Franklin MD Narrative: Date: 11/27/17 Time: 2026 Hospital Course Summary Disclaimer: The visit summary below is not to be considered part of the above Progress Note. Hospital Course: 11/19 Admit, observation status, under the hospitalist service. Left leg weakness, left arm coordination deficit, and ataxia/gait instability -stroke w/u with MRI, echo, carotid doppler, lipid panel -cont statin and ASA but consider plavix or anticoag with hx of a-fib -check ekg and monitor tele -PT/OT/ST consult -check B12 d/t paresthesias -check TSH TRIPP -last creatinine on file was 1.3 in 2016 -bladder scan, check UA -IVF: NS @ 125 mL/hr -renal sono ordered -meds reviewed: no nephrotoxic agents identified Hyperglycemia, DM2 -check A1c -cont home insulin and add medium-dose SSI -CC diet; may need diabetic education 11/21 Continue with Plavix given CVA. May consider full anticoagulation in 1-2 weeks. Statin added at admission. Resume home Beta deena for better BP control. Home Nifedipine remains on hold for now. Working with PT/OT who recommend home health. 11/[address] head d/t worsening neurologic symptoms including more severe left leg and left arm weakness. BP higher this am with diastolic >100. Routine nifedipine was added in addition to BB. Continue Plavix, statin. PT/OT will need to re-evaluate given worsening symptoms. BGM uncontrolled. Will add short acting insulin at meals (6 U with breakfast, 6 U with lunch, 4 U with dinner). 11/23 Increased symptoms again today with left arm/leg flaccidity and left facial droop and tongue deviation. Consulted Dr. Smith - this condition is also seen 3 days post stroke, and unfortunately other than medication and therapy there are no treatments. He agrees with repeating MRI brain -- if this looks like there is mass effect could consider starting mannitol. He recommends starting Decadron 2 mg PO BID now. Creatinine increased to 2.3. Start 1/2 NS at 100 mL/hr. Monitor BG after adding mealtime insulin yesterday. D/W Dr. Franklin. Continue PT/OT, Plavix, Statin. 2/24 ASA added to Plavix for cerebral protection. Continue Lovenox for DVR prevention. Will continue with IVF to maintain hydration as oral intake variable. Blood sugars with variability due to variable oral intake and Decadron. Encourage continue therapy. PAZ prudent due to Hx afib. Discussed case at length with patient and her son. Questions answered. Will need rehabilitation at time of discharge. PLAN ASA and Plavix for cerebral protection. Continue Lovenox for DVR prevention. Will need to talk with Cardiology team tomorrow regarding possible PAZ. IRU screen placed for tomorrow morning given Acute CVA extension with left hemiparesis Patient had resided at home independently and is hopeful for aggressive rehabilitation. Continue to manage glucose current regimen Creatinine is stable as baseline is 1.7. Appreciated consultation by Dr Smith 11/25/17 ASA and Plavix for cerebral protection. Continue Lovenox for DVR prevention. Will need to talk with Cardiology team tomorrow regarding possible PAZ. IRU screen placed for tomorrow morning given Acute CVA extension with left hemiparesis Patient had resided at home independently and is hopeful for aggressive rehabilitation. 11/26/17 Continue ASA, Plavix, statin. NPO for PAZ today. IRU screen placed. Continue Decadron as recommended by Dr. Smith. May need to increase mealtime insulin while on Decadron when diet is advanced. Labs stable. Decrease rate of IVF. PAZ showing no atrial clot. 11/27/17 Creatinine showing improvement to 1.7. Oral drive still doing well. Will stop IVF. Continue with therapy. CM working on discharge disposition.
[2017-11-27] MEDS: ATORVASTATIN 40 MG TABLET PO SCH (21:43)
[2017-11-27] MEDS: GABAPENTIN 300 MG CAPSULE PO SCH (21:45)
[2017-11-28] MEDS: LEVOTHYROXINE 50 MCG TABLET PO SCH (06:22)
[2017-11-28] MEDS: INSULIN REGULAR, HUMAN 100 UNIT/ML INJECTION SQ PRN ×3 (06:22→14:08)
[2017-11-28] MEDS: ENOXAPARIN 40 MG/0.4 ML INJECTION SQ SCH (08:38)
[2017-11-28] MEDS: INSULIN REGULAR, HUMAN 100 UNIT/ML INJECTION SQ SCH (08:39)
[2017-11-28] MEDS: INSULIN GLARGINE 100unit/ml INJECTION SQ SCH (08:40)
[2017-11-28] MEDS: MECLIZINE 25 MG TABLET PO SCH (08:41)
[2017-11-28] MEDS: CLOPIDOGREL 75 MG TABLET PO SCH (08:41)
[2017-11-28] MEDS: AMIODARONE 200 MG TABLET PO SCH (08:41)
[2017-11-28] MEDS: ASPIRIN 81 MG CHEWABLE TABLET PO SCH (08:41)
[2017-11-28] MEDS: DEXAMETHASONE 1 MG TABLET PO SCH (08:43)
[2017-11-28 11:25] VITALS: TEMP 98.3
--- NOTE | 2017-11-28 12:09 | Discharge Summary ---
Discharge Information Date of admission: 11/19/17 22:15 Anticipated date of discharge: 11/28/17 Attending Physician: Juan Franklin MD Primary care physician: Coleman Burk DO Consults: Building Services Coordinator Consult [Inpatient Diabetic Consult] [CONS] Routine Diabetic Training: Carb Counting Dietary Consult [CONS] Routine Comment: help with diet Physician Consult: Yanely Smith Reason For Exam: stroke - Discharge Diagnosis (1) Ischemic stroke Status: Acute 2 Acute right MCA territory ischemic strokes Repeat MRI: Extension of stroke - no hemorrhagic transformation Left hemiparesis secondary to CVA TRIPP (POA) - resolved CKD stage III - baseline creatinine 1.7 Hypokalemia (Not POA) - resolved 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 Moderate deep/subcortical white matter disease unchanged from the previous study. The brainstem, cerebellum, and cerebral hemispheres otherwise have a normal morphology and CT attenuation. There is no evidence of midline displacement. No hemorrhage, signs of acute territorial stroke, mass effect, mass lesions, or edema is evident. The visualized portions of the skull base, midface, and calvarium demonstrate no abnormality. The paranasal sinuses are well aerated and free of significant disease. The tympanic and mastoid cavities appear normal. IMPRESSION: Age-related atrophy and moderate deep/subcortical white matter disease likely secondary to chronic small vessel ischemia and not significantly changed from the previous CT head without evidence for acute intracranial process or hemorrhage. Date of Exam: 11/20/17 Type of Exam(s): CT abdomen wo con Findings: The lung bases are clear. The unenhanced contours of the liver are unremarkable. The gallbladder appears normal. The spleen, pancreas and adrenal glands are within normal limits left kidney appears normal. In the area of sonographic abnormality in the lateral aspect of the right kidney there is a fat containing mass measuring 3.3 x 2.9 x 3.1 cm in size. There is no renal stone disease or hydronephrosis. The visualized loops of small and large bowel are unremarkable. Bone windows show degenerative change in the spine with no focal lytic or blastic lesions. 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 Current consensus recommendations are that this does not require further workup given the size less than 4 cm. Date of Exam: 11/20/17 Type of Exam(s): MR head/brain wo con FINDINGS: Two small areas of acute diffusion restriction are seen, one is in the posterior limb of the right internal capsule while the other is in the periventricular right posterior frontal white matter. These areas have T2/FLAIR hyperintensity as expected. The ventricles are of normal size, shape, and contour for the patient's age. There are extensive additional areas of T2- weighted and T2 FLAIR weighted signal abnormality in the deep frontoparietal white matter that most likely represent small vessel ischemic disease. This is greatly advanced for the patient's age, but similar to the comparison studies. The brain stem, cerebellum, and cerebral hemispheres otherwise have a normal morphologic appearance as well as MR signal intensity on all pulse sequences. There is no evidence of an intracranial mass lesion, intracranial hemorrhage, or hydrocephalus. The visualized portions of the orbits, calvarium, paranasal sinuses, and skull base demonstrate no significant abnormality. IMPRESSION: 1. Two small areas of acute right MCA territory infarct. 2. Greatly advanced small vessel ischemic white matter disease for age. Date of Exam: 11/20/17 Type of Exam(s): US carotid doppler BI The right vertebral artery is patent with cephalic flow. The left vertebral artery is patent with cephalic flow. Common carotid intimal thickening bilaterally. Scattered plaque in the carotid bulbs. Mild velocity elevation in the distal ICAs is felt to be due to tortuosity rather than a true stenosis. IMPRESSION: No hemodynamically significant carotid stenosis. Date of Exam: 11/20/17 Type of Exam(s): US echo doppler complete Left atrial dimension is normal. Left ventricular end-diastolic dimension is normal. Left ventricle wall thickness is increased. LV systolic function is normal with ejection fraction of 61%. Right atrium is normal. Right ventricle is normal. Aortic root dimension is normal. Mitral valve is morphologically normal with trace of mitral regurgitation. Aortic valve is normal. Tricuspid valve shows mild tricuspid regurgitation with mild pulmonary hypertension with estimated pulmonary artery systolic pressure of 37. Pulmonary valve shows no pulmonary insufficiency. There is no pericardial effusion. IMPRESSION 1. Normal LV systolic function with ejection fraction of about 61%. 2. Concentric left ventricular hypertrophy. 3. Mild tricuspid regurgitation with mild pulmonary hypertension with estimated pulmonary artery systolic pressure of 37. 4. Trace of mitral regurgitation. Date of Exam: 11/20/17 Type of Exam(s): US renal BI FINDINGS: Both kidneys are present with normal cortical thickness and echogenicity. No hydronephrosis. Large echogenic lesion arising from the lateral aspect of the right kidney lower pole measuring 3.6 x 3.5 x 4.3 cm in size. No left-sided renal mass. The right kidney measures 10.4 cm in length, and the left kidney measures 10.2 cm in length. Bladder appears sonographically normal without debris or mass. Bilateral ureteral jets noted. IMPRESSION: 1. No hydronephrosis. 2. Large echogenic 4.3 cm right renal mass could represent an angiomyolipoma. Noncontrast abdominal CT could be performed for initial further evaluation to evaluate for a fat-containing mass. Date of Exam: 11/22/17 PROCEDURE: CT head/brain wo con: FINDINGS: The ventricles are of normal size, shape, and contour for the patient' s age. Extensive white matter disease is not visibly changed. No evidence of hemorrhagic transformation in the two small areas of known right MCA infarct which blend with the existing extensive white matter lesions. The brainstem, cerebellum, and cerebral hemispheres otherwise have a normal morphology and CT attenuation. There is no evidence of midline displacement. No hemorrhage is evident. The visualized portions of the skull base, midface, and calvarium demonstrate no abnormality. The paranasal sinuses are well aerated and free of significant disease. The tympanic and mastoid cavities appear normal. IMPRESSION: Stable appearance of the brain without evidence of hemorrhagic transformation in the right MCA strokes. Date of Exam: 11/23/17 PROCEDURE: MR head/brain wo con: FINDINGS: The prior areas of diffusion restriction on the recent comparison MRI have enlarged. The region in the right posterior limb of the internal capsule measures 1.2 cm in length compared to 0.8 cm previously. The periventricular area of diffusion restriction on axial image #59 now measures 2.6 x 1.3 cm in size compared to 1 x 1 cm on the prior study. No additional new areas of acute diffusion restriction. Ventricles are stable. No evidence of hemorrhagic transformation. Extensive T2/FLAIR white matter disease throughout both cerebral hemispheres, similar to the prior study. Impression: Interval enlargement of the existing acute right MCA territory infarcts as measured above. No evidence of hemorrhagic transformation. History of Present Illness HPI: Clarisa Shakih is a 57 year old woman who was admitted to [facility] for stroke-like symptoms. Her symptoms started around noon while eating, she began to feel a funny sensation in her left leg then her left arm. They felt heavy and difficulty to move. She couldn't feel her left leg. She felt dizzy and lightheaded but denies vertigo. She denies syncope or mental status changes. She did not fall. She denies headache, vision changes. She has had chronic problems swallowing ever since stroke in 2016. She denies fevers but has had a recent cough and sinus drainage which sometimes provokes a migraine, but she did not have a migraine today. No chest pain, dyspnea, palpitations, leg swelling, abdominal pain, n/v/d/c, dysuria. She has chronic nocturia. She's been sleeping a lot, more than usual. She can't fall asleep until 0300 then she sleeps in till 11 or 1200. She's gained 4 lbs in a month. Her blood sugars are variable at home. On arrival to the ED, her VS were stable. She was reportedly dragging her left leg. A CT scan was negative for acute infarct but did show moderate white matter disease. Labs showed mild leukocytosis and thrombocytosis , and also TRIPP with creatinine of 2.3. Glucose was also elevated at 454, and after insulin x2 it decreased to 393. Upon arrival in the room, nursing staff report that she was extremely unsteady with left leg weakness. Objective Vital signs: Temperature 98.3 F 11/28/17 11:24 Pulse Rate 72 11/28/17 11:24 Respiratory Rate 16 11/28/17 11:24 Blood Pressure 121/57 11/28/17 11:24 Pulse Oximetry 96 11/28/17 11:24 Height/Weight/BMI: Weight 73.8 kg - Constitutional Present: moderate distress (tearful, anxious, worried about the future) - Routine HEENT Exam Head: Present: normocephalic Eye: Present: PERRL. Absent: conjunctival icterus, scleral injection ENT: Present: mucous membranes moist, oropharynx clear - Routine Respiratory Exam Present: CTA bilaterally - Routine Cardiovascular Exam Present: RRR, S1, S2 - Routine Abdominal Exam Present: soft, normoactive bowel sounds, non distended, non tender - Routine Extremities Exam Present: no edema - Routine Musculoskeletal Exam Musculoskeletal: Absent: moving extremities well - Routine Skin Exam Present: intact, dry, warm - Routine Neurological Exam Present: alert, oriented X3, motor deficit (left arm/leg flaccidity). Absent: CN II-XII intact (left facial droop and tongue deviation) - Routine Psychiatric Exam Present: anxious Hospital Course This is a general summary of the patient's hospital course. For more details refer to the complete medical record. Hospital course: 11/19/17: Admitted to observation status for left leg and arm weakness, left arm coordination deficit, and ataxia/gait instability. Antihypertensives were held initially. Stroke workup was ordered. IVF were started for TRIPP and renal sono ordered - this showed a right renal mass. An A1c was checked, which was 11.6%. Home insulin was continued and supplemented with sliding scale. TSH was normal at 2.15. 11/20/17: Lipids: Triglycerides 161, cholesterol 271, LDL 180, VLDL 32, HDL 58, Chol/HDL ratio 4.7. Diabetes and dietary education ordered. CT head was negative but MRI showed 2 small areas of acute right MCA territory infarct. Echo showed EF of 61%, LVH, mild PH. No significant stenosis was seen on carotid doppler. Plavix was started for acute stroke. Atorvastatin was started in place of pravastatin. PT/OT recommended home with walker. 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 Continued working with Home Health. 11/22/17: Worsening neurologic symptoms: increased weakness to left arm/leg. Repeat head CT was negative for hemorrhagic transformation or shift. Home nifedipine was added for BP control. Short-acting insulin added at meals for persistent hyperglycemia. 11/23/17: Ongoing neurologic decline - complete flaccidity to left arm/leg, left facial droop and tongue deviation. Dr. Smith was consulted:this condition is also seen 3 days post stroke, and unfortunately other than medication and therapy there are no treatments. MRI brain repeated, showing extension of stroke. Started Decadron 2 mg PO BID. Creatinine increased to 2.3: started 1/2 NS at 100 mL/hr. 11/24/17: Resumed ASA. PAZ ordered. BG variable d/t inconsistent oral intake and steroids. Creatinine still 2.3. 11/25/17-11/26/17: No significant change in stroke symptoms. PAZ was negative for intracardiac thrombus/mass or shunt. Creatinine improved to 1.9. 11/27/17: Creatinine 1.7. Oral drive still doing well; stopped IVF. IRU not approved; CM investigating SNF options. 11/28/17: Discharged to [facility] in stable condition. Continue Decadron taper: 2 mg daily x 7 days then DC. Continue ASA, Plavix, atorvastatin. Continue monitoring blood sugars and will continue NovoLIN 6 units with meals and Lantus 24 units daily. Continue PT/OT. Diagnosis and recovery expectations, which are uncertain at this point, were explained to pt/family multiple times prior to discharge and again on day of discharge. Recommend f/u with Dr. Burk within 1 week - monitor BP and BG and renal status. Recommend f/u with Dr. Smith in 1 month. Recommend f/u with Dr. Loving for a possible implantable recorder and consideration for full anticoagulation w/ hx of a-fib - she remained in sinus throughout her hospital stay. Time spent with patient: discharge greater than 30 minutes Resuscitation Status: Full Code Discharge Plan - Discharge Disposition Discharge Date: 11/28/17 Disposition: 03 To U Not [facility] (SNF) *Condition: Stable Reason For Visit (Visit label in EMR): acute stroke - Discharge Medications *Discharge Medications: New Atorvastatin [Lipitor] 80 mg PO HS tab Clopidogrel [Plavix] 75 mg PO DAILY tab Dexamethasone Po [Decadron] 2 mg PO DAILY 7 Days #7 tab Insulin Regular, Human [NovoLIN R] 6 unit SQ AMI vial Insulin Regular, Human [NovoLIN R] 6 unit SQ PMI vial Insulin Regular, Human [NovoLIN R] 6 unit SQ NOONI vial Milk of Magnflory [Mom] 30 ml PO DAILY PRN udc PRN Reason: Constipation Continue Vitamin B Complex Vit C No.4 [Super B Complex] 1 tab PO DAILY #0 NIFEdipine [Nifedipine ER] 60 mg PO DAILY Amiodarone [Pacerone] 200 mg PO DAILY Metoprolol Succinate 50 mg PO DAILY Meclizine [Antivert] 25 mg PO BID Aspirin Chewable [ASA] 81 mg PO DAILY Linagliptin [Tradjenta] 5 mg PO DAILY Levothyroxine Sodium 50 mcg PO DAILY Changed Insulin Glargine,Hum.rec.anlog [Lantus] 24 unit SQ DAILY #1 vial Discontinued Pravastatin Sodium 80 mg PO HS - Discharge Packet/Instructions *Diet: Cardiac consistent, low fat, 2 gm sodium restriction, 2000 kcal/day *Activity: PT/OT eval. *Pain Management/Treatment: Tylenol PRN. *Wound Care: N/A Additional Instructions: Check blood sugars: fasting and 2 hours after meals. *Expected Signs/Symptoms: Right arm and leg weakness. Left facial droop and unequal smile. Fatigue from hospital stay. *Notify Physician if: Worsened neurologic symptoms, headache, visual changes, dysphagia, aspiration, increased weakness, chest pain, difficulty breathing, vomiting, diarrhea, or any new concerns. *During Business Hours Contact: Dr. Burk at [facility]. *After Business Hours Contact: The on-call provider for Dr. Burk. *Pending Lab/Results: No Pending Lab Outpatient Orders: BMP - Basic Metabolic - [facility] Time Frame: 1 Week, Location: None Selected - Referrals/Follow Up *Referrals/Follow Up: Coleman Burk DO [Primary Care Provider] - 1 Week Yanely Smith MD [Physician] - 1 Month - Patient Handouts Patient Handouts: Ischemic Stroke (DC) - Dismissal Complete Discharge Instructions are:: Complete Physician Narrative - Narrative Physician: Juan Franklin MD Attestation Narrative: Date: 11/28/17 Time: 1355 Have independently interviewed and examined patient prior to discharge. Chart reviewed. Cased discussed with CM and my OFFICE SYSTEM ANALYST. Care plan developed with my supervision; agree with above. Not change in strength. Difficult to maintain position. Dizzy. Eating well breathing well. Lungs: clear CV: regular AB: soft nt/nd Plan: Will discharge to [facility] for skilled care. Encourage patient to work with therapy to improve function; advised not certain how much strength and abilities will return. See orders for details.
--- NOTE | 2017-11-28 13:18 | Extended Care Facility Orders ---
Admission Orders Admit to:: Half-Way Allergies/Adverse Reactions: Allergies No Known Allergies Allergy (Unverified 07/20/16 22:04) Admitting Diagnosis: acute stroke; left arm/leg weakness; left facial droop Admitting Physician: Juan Franklin MD Attending Physician: Juan Franklin MD Code Status: Full Code Anticiapted Length of Stay: 30 days or less Rehab Potential: fair Rehab Prognosis: fair Diet: Cardiac consistent, low fat, 2 gm sodium restriction, 2000 kcal/day May use Facility Protocol or Standing Orders: Yes May have flu vaccine: Yes Evaluations/Treatment: Speech, PT, OT Half-Way Certification: I certify that SNF services are required to be given on an Inpatient basis because of the patient's need for prison care on a continuing basis for the condition(s) for which hshe received inpatient hospital services prior to transfer to the SNF. SNF inpatient care is necessary for the following reasons: Indication for Half-Way: Neuro Assessment, Diabetic Assessment, Teach Diabetes Mellitus Management - Additional Information In Event of Arrest: Start CPR,call 911,send patient to the ER Resident is Aware of Diagnosis: Yes Laboratory/Radiology: BMP in 1 week. Referrals: Coleman Burk DO [Primary Care Provider] - 1 Week Yanely Smith MD [Physician] - 1 Month
[2017-11-28 13:54] VITALS: BP 145/69; PULSE 79; RESP 18; O2SAT 97
--- NOTE | 2017-11-28 17:12 | Progress Note ---
DATE 11/28/[address] Franklin PATIENT'S CHIEF COMPLAINT Left-sided weakness and dysarthria. HISTORY OF PRESENT ILLNESS The patient has been stable in the past few days. She has not made any major progress in her left -sided weakness. She is able to feel better on her left side now. Her speech is also better with mild dysarthria and no difficulty finding words. She has been frustrated with her weakness and the lack of improvement. She had a transesophageal echocardiogram that showed no evidence of clotting in her heart. The patient continues to take aspirin and Plavix for stroke prevention with no complications. She has been also taking Decadron 2 mg p.o. b.i.d. to improve on her symptoms of weakness and headache. The patient is going to be discharged to a [facility] facility. ASSESSMENT Acute ischemic stroke affecting the right basal ganglia area. This has not been progressing after her last recent stroke expansion. The patient continues to have significant left-sided weakness graded as 0-1/5. She has had better sensation and speech. PLAN 1. Continue aspirin and Plavix for stroke prevention. 2. The patient needs to follow up with Dr. Loving for potential LINQ device placement to check for paroxysmal atrial fibrillation. If this is positive, the patient may need to be on a stronger anticoagulation medication like Pradaxa and Eliquis 2. Continue physical and occupational therapy at the nursing facility 3. The patient may follow up with Dr. Smith in a month to assess any improvement in symptoms and risk for stroke. OUMAR
== END 2017-11-28 15:05 | DRG 65 ==
LOC: ED 15:38 → MED 15:38 → SUATTDRO 22:15
PROVIDERS: ADMIT Internal Medicine; ATTEND Hospitalist